=== PATIENT | female | born 1970 | race African-American/Black ===

== ENCOUNTER 2017-03-15 22:23 | Inpatient (IN) | payer OTHER ==
[~2017-03-15] VITALS: Ht 157.5 cm; Wt 89.8 kg
[~2017-03-15 22:23] MED LIST: HYDR25CA PO; PERM60CR12 TP; VALA10005 PO; [UNRECOGNIZED DRUG - CODE] MC; [UNRECOGNIZED DRUG - CODE] TP
[2017-03-15] MEDS ORDERED: IV NORMAL SALINE 1000ML BAG 1,000 ML IV ONE (23:15)
[2017-03-15] MEDS ORDERED: LORAZEPAM 2 MG/ML VIAL. IV ONE (23:15)
[2017-03-16] VITALS (12 sets, daily range): BP systolic 149–181; BP diastolic 70–91
[2017-03-16 00:45] LABS: BASO % 1 % (0-3); EOS % 1 % (0-3); HEMATOCRIT 25.5 % (36.0-47.0); HEMOGLOBIN 7.6 g/dL (12.0-15.5); LYMPH # 3.2 x10^3/uL (1.0-4.8); LYMPH % 36 % (24-48); MEAN CORPUSCULAR HEMOGLOBIN 20 pg (25-35); MEAN CORPUSCULAR HGB CONC 30 g/dL (31-37); MEAN CORPUSCULAR VOLUME 67 fL (79-100); MONO % 11 % (0-9); NEUT % 52 % (31-73); PLATELET COUNT 302 x10^3/uL (140-400); RED CELL DISTRIBUTION WIDTH 33.9 % (11.5-14.5); WHITE BLOOD COUNT 8.9 x10^3/uL (4.0-11.0)
[2017-03-16 01:03] LABS: CALCIUM 8.8 mg/dL (8.5-10.1); CREATININE 1.2 mg/dL (0.6-1.0); GFR 58.5; POTASSIUM 3.6 mmol/L (3.5-5.1)
[2017-03-16 01:09] LABS: ALBUMIN 3.1 g/dL (3.4-5.0); ALBUMIN/GLOBULIN RATIO 0.9 (1.0-1.7); TOTAL BILIRUBIN 0.2 mg/dL (0.2-1.0); TOTAL PROTEIN 6.6 g/dL (6.4-8.2)
[2017-03-16 01:36] LABS: BILIRUBIN,URINE NEGATIVE (NEG); GLUCOSE,URINE NEGATIVE (NEG); NITRITE,URINE POSITIVE (NEG); PROTEIN,URINE NEGATIVE (NEG-TRACE); UROBILINOGEN,URINE 0.2 mg/dL (0.2 mg/dL)
[2017-03-16 01:42] LABS: BARBITURATES NEG (NEG); BENZODIAZEPINES NEG (NEG); CANNABINOIDS NEG (NEG); COCAINE NEG (NEG); METHADONE NEG (NEG); OPIATES NEG (NEG); PHENCYCLIDINE NEG (NEG)
[2017-03-16 01:43] LABS: ETHANOL, URINE NEG (NEG)
[2017-03-16 01:47] LABS: BACTERIA,URINE MANY /HPF (0-FEW); RBC,URINE OCC /HPF (0-2); SQUAMOUS EPITHELIAL CELL,UR FEW /LPF
--- NOTE | 2017-03-16 02:28 | ACF ---
Admission Forms Criteria SEIZURE Clinical Indications for Admission to Inpatient Care (Place 'X' for any and all applicable criteria): Admission is indicated for seizure and ANY ONE of the following(1)(2)(3)(4)(5): [X]I. Inpatient admission required rather than observation care (Also use Seizure: Observation Care Criteria as appropriate) because of ANY ONE of the following: [ ]a) Altered mental status that is severe or persistent [ ]b) New focal neurologic deficit that is severe or persistent [ ]c) Metabolic disorder (eg, hypoglycemia, hyponatremia) that is severe or persistent [ ]d) Recurrent seizure [ ]e) Outpatient antiseizure regimen cannot be established (eg , patient cannot tolerate medication, initiation requires inpatient care) [X]f) Need for ongoing intravenous infusion of antiseizure medication [ ]g) Cardiac arrhythmias of immediate concern [ ]h) Cerebral bleeding, hydrocephalus, or vasospasm monitoring (14) [ ]i) Increased intracranial pressure or cerebral edema monitoring (15) [ ]j) Other treatment or monitoring requiring inpatient admission [ ]II. Status epilepticus [A] or repetitive seizures not controlled with emergent treatment (6)(8) [ ]III. Brain disorder (eg, tumor, edema, and hydrocephalus) that requiring monitoring or intervention available only at inpatient level of care. [ ]IV. Brain insult (eg, severe trauma, stroke, drug toxicity, or withdrawal) that requires monitoring or intervention available only at inpatient level of care (10)(11) Extended stay beyond goal length of stay may be needed for (22) [ ]a) Complications of status epilepticus [ ]b) Refractory status epilepticus [ ]c) Etiology-specific therapy for conditions such as FLOOR POLISHER infection, head injury,eclampsia, severe metabolic abnormalities, and brain tumor [ ]d) Residual neurologic damage, [ ]e) Initiation of significant change to anticonvulsant treatment [ ]f) Older patients (65 years or older) [ ]g) Patient requiring intubation (eg, to protect airway) The original [employer] content created by [facility] and [employer] has been revised. The portions of the content which have been revised are identified through the use of italic text or in bold, and [facility] [employer] has neither reviewed nor approved the modified material. All other unmodified content is copyright [facility] [employer]. Please see references footnoted in the original [facility] edition 2016 Admission Criteria Met?: Yes KALIE MARTINEZ Mar 16, 2017 02:28
--- NOTE | 2017-03-16 03:09 | PHYS DOC ---
Past Medical History Past Medical History: Asthma, Diabetes-Type II, Hypertension Past Surgical History: No Surgical History Alcohol Use: None Drug Use: None Adult General Chief Complaint Chief Complaint: SEIZURE HPI HPI Patient is a 46 year old female who presents s/p seizure. Patient accompanied by family who contribute to history. She was at home when she started blinking, not responding, and holding her arm out to the side. This lasted 5-10 minutes and was followed by a period of confusion. On arrival to ED patient returning to baseline mental status. She does report mild BARRETT and feeling sore all over. Patient does have h/o seizures (has been many years since last seizure) for which she took phenobarbital, however she has not taken this medication in quite some time. In addition, patient reports recently she has been experiencing dizziness, SOB with exertion, and fatigue. She says she was seen by her PCP and was found to be anemic, but not to the point where she needed a transfusion. She is unsure what is causing the anemia. Patient denies any blood in her stool. Review of Systems Review of Systems Constitutional: Dizziness, fatigue. Denies fever or chills Eyes: Denies change in visual acuity or eye pain HENT: Denies nasal congestion or sore throat Respiratory: Exertional shortness of breath Cardiovascular: Denies chest pain GI: Denies abdominal pain, nausea, vomiting, bloody stools or diarrhea : Denies dysuria or hematuria Musculoskeletal: Body aches Integument: Denies rash or skin lesions Neurologic: Seizure, mild headache. Denies focal weakness or sensory changes Current Medications Current Medications Current Medications Medications (Trade) Dose Ordered Sig/Pranay Start Time Stop Time Status Last Admin Dose Admin Lorazepam (Ativan) 1 mg 1X ONCE 03/15/17 23:15 03/15/17 23:16 DC 03/16/17 00:31 1 MG Sodium Chloride (Iv Sodium Chloride 0.9% 1000ml Bag) 1,000 ml @ 1,000 mls/hr 1X ONCE 03/15/17 23:15 03/16/17 00:14 DC 03/16/17 00:31 1,000 MLS/HR Allergies Allergies Allergies Coded Allergies Type Severity Reaction Last Updated Verified No Known Drug Allergies 04/30/16 No Physical Exam Physical Exam Constitutional: Well developed, well nourished, no acute distress, non-toxic appearance HENT: Normocephalic, atraumatic, bilateral external ears normal Eyes: PERRL, EOMI, conjunctiva normal, no discharge Neck: Normal range of motion, no stridor Cardiovascular: Heart rate normal, regular rhythm, no murmur Lungs & Thorax: Bilateral breath sounds clear to auscultation Abdomen: Bowel sounds normal, soft, non-distended, no TTP Skin: Warm, dry, no erythema, no rash Extremities: No obvious deformity, no edema Neurologic: Alert and oriented X 3, slow responses to questions, GCS 15, CN II- XII grossly intact, strength intact and symmetrical throughout, sensation to light touch intact throughout, no dystaxia noted Current Patient Data Vital Signs Vital Signs Date Time Temp Pulse Resp B/P Pulse Ox O2 Delivery O2 Flow Rate FiO2 03/15/17 22:40 98.2 76 16 187/85 100 Room Air 98.2 Lab Values Laboratory Tests Test 03/16/17 00:15 03/16/17 00:35 03/16/17 01:23 White Blood Count 8.9x10^3/uL (4.0-11.0) Red Blood Count 3.80x10^6/uL (3.50-5.40) Hemoglobin 7.6g/dL (12.0-15.5) L Hematocrit 25.5% (36.0-47.0) L Mean Corpuscular Volume 67fL (79-100) L Mean Corpuscular Hemoglobin 20pg (25-35) L Mean Corpuscular Hemoglobin Concent 30g/dL (31-37) L Red Cell Distribution Width 33.9% (11.5-14.5) H Platelet Count 302x10^3/uL (140-400) Neutrophils (%) (Auto) 52% (31-73) Lymphocytes (%) (Auto) 36% (24-48) Monocytes (%) (Auto) 11% (0-9) H Eosinophils (%) (Auto) 1% (0-3) Basophils (%) (Auto) 1% (0-3) Neutrophils # (Auto) 4.7x10^3uL (1.8-7.7) Lymphocytes # (Auto) 3.2x10^3/uL (1.0-4.8) Monocytes # (Auto) 1.0x10^3/uL (0.0-1.1) Eosinophils # (Auto) 0.1x10^3/uL (0.0-0.7) Basophils # (Auto) 0.0x10^3/uL (0.0-0.2) Platelet Estimate Pending Sodium Level 139mmol/L (136-145) Potassium Level 3.6mmol/L (3.5-5.1) Chloride Level 107mmol/L (98-107) Carbon Dioxide Level 28mmol/L (21-32) Anion Gap 4 (6-14) L Blood Urea Nitrogen 12mg/dL (7-20) Creatinine 1.2mg/dL (0.6-1.0) H Estimated GFR (Cockcroft-Gault) 58.5 BUN/Creatinine Ratio 10 (6-20) Glucose Level 112mg/dL (70-99) H Calcium Level 8.8mg/dL (8.5-10.1) Magnesium Level 2.0mg/dL (1.8-2.4) Total Bilirubin 0.2mg/dL (0.2-1.0) Aspartate Amino Transferase (AST) 14U/L (15-37) L Alanine Aminotransferase (ALT) 18U/L (14-59) Alkaline Phosphatase 77U/L (46-116) Total Protein 6.6g/dL (6.4-8.2) Albumin 3.1g/dL (3.4-5.0) L Albumin/Globulin Ratio 0.9 (1.0-1.7) L Urine Collection Type Unknown Urine Color Yellow Urine Clarity Clear Urine pH 6.0 Urine Specific [place] 1.025 Urine Protein Negativemg/dL (NEG-TRACE) Urine Glucose (UA) Negativemg/dL (NEG) Urine Ketones (Stick) Negativemg/dL (NEG) Urine Blood Negative (NEG) Urine Nitrite Positive (NEG) Urine Bilirubin Negative (NEG) Urine Urobilinogen Dipstick 0.2mg/dL (0.2 mg/dL) Urine Leukocyte Esterase Negative (NEG) Urine RBC Occ/HPF (0-2) Urine WBC 1-4/HPF (0-4) Urine Squamous Epithelial Cells Few/LPF Urine Bacteria Many/HPF (0-FEW) Urine Opiates Screen Neg (NEG) Urine Methadone Screen Neg (NEG) Urine Barbiturates Neg (NEG) Urine Phencyclidine Screen Neg (NEG) Urine Amphetamine/Methamphetamine Pos (NEG) Urine Benzodiazepines Screen Neg (NEG) Urine Cocaine Screen Neg (NEG) Urine Cannabinoids Screen Neg (NEG) Urine Ethyl Alcohol Neg (NEG) Laboratory Tests 03/16/17 00:15 Laboratory Tests 03/16/17 00:35 EKG EKG EKG (my read): sinus rhythm, rate 76, normal axis, intervals wnl, no acute ST/T changes Radiology/Procedures Radiology/Procedures [] Course & Med Decision Making Course & Med Decision Making Pertinent Labs and Imaging studies reviewed. (See chart for details) Patient is 46 year old female who presents s/p seizure. Does have remote h/o same. Will check labs, UA, EKG to evaluate for possible inciting cause. IV fluids, small dose of ativan ordered. EKG ok per my read. Labs notable for anemia; she does have symptoms caused by this. After long discussion with patient and family, we decided to transfuse patient. Risks and benefits discussed, consent signed and placed on chart. Will admit under the care of Dr. Middleton for further evaluation and treatment. Dragon Disclaimer Dragon Disclaimer This electronic medical record was generated, in whole or in part, using a voice recognition dictation system. Departure Departure Impression: Primary Impression: Seizure Additional Impression: Symptomatic anemia Disposition: ADMITTED INPATIENT Admitting Physician: Zuly Middleton Condition: STABLE Referrals: ROSALEE CHACKO MD (PCP) Problem Qualifiers JAVI CRUMP MD Mar 16, 2017 03:09
[2017-03-16] MEDS ORDERED: ONDANSETRON PF 4 MG/2 ML VIAL. IV PRN ×2 (03:15→09:35)
[2017-03-16] MEDS ORDERED: ACETAMINOPHEN 325 MG TABLET. PO PRN (03:15)
[2017-03-16] MEDS ORDERED: MORPHINE SULFATE 2 MG/ML DISP.SYRIN. IV PRN (03:15)
[2017-03-16 03:31] LABS: HYPOCHROMIA MOD; MICROCYTOSIS MARKED; PLT ESTIMATE ADEQUATE (ADEQUATE); POIKILOCYTOSIS SLIGHT; POLYCHROMASIA SLIGHT
[2017-03-16 03:32] LABS: OVALOCYTES OCC; TARGET CELLS OCC
[2017-03-16] MEDS ORDERED: hydrALAZINE 20 MG/ML VIAL. IVP PRN (04:15)
--- NOTE | 2017-03-16 08:53 | EKG ---
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
--- NOTE | 2017-03-16 11:26 | PDOC2 ---
NEUROLOGY CONSULT Date of Admission Date of Admission DATE: 03/16/17 TIME: 11:21 Reason for Consult Reason for Consult: Seizure Referring Physician Referring Physician: Dr. Middleton PCP: Dr. Milligan Source Source: Chart review, Patient History of Present Illness History of Present Illness The patient is a 46-year-old right-handed female who had a seizure last night. She was recently diagnosed with anemia and indeed her hemoglobin is low. Family described a tonic seizure with minimal convulsive activity in a short post a full state. The patient last had a seizure more than 10 years ago. She started having seizures at age 13 and was on phenobarbital. She does not know if she took other anticonvulsants. She feels better now. Past Medical History Cardiovascular: HTN Pulmonary: Asthma CENTRAL NERVOUS SYSTEM: Seizure Infectious disease: Herpes simplex2 Endocrine: Diabetes ( currently controlled with diet) Dermatology: Other (Scabies) Past Surgical History Past Surgical History: No pertinent history Family History Family History: No pertinent hx ( negative procedures) Social History Social History No alcohol or tobacco, unemployed Current Medications Current Medications Current Medications Sodium Chloride (Iv Sodium Chloride 0.9% 1000ml Bag) 1,000 ml @ 1,000 mls/hr 1X ONCE IV Last administered on 03/16/17 00:31; Start 03/15/17 at 23:15; Stop 03/16/17 at 00:14; Status DC Lorazepam (Ativan) 1 mg 1X ONCE IV Last administered on 03/16/17 00:31; Start 03/15/17 at 23:15; Stop 03/15/17 at 23:16; Status DC Ondansetron HCl (Zofran) 4 mg PRN Q8HRS PRN IV NAUSEA/VOMITING; Start 03/16/17 at 03:15; Stop 03/16/17 at 09:38; Status DC Morphine Sulfate 2 mg PRN Q2HR PRN IV SEVERE PAIN; Start 03/16/17 at 03:15; Stop 03/17/17 at 03:14 Acetaminophen 650 mg 650 mg PRN Q4HRS PRN PO FEVER; Start 03/16/17 at 03:15; Stop 03/17/17 at 03:14 Ceftriaxone Sodium (Rocephin 1gm Ivpb For Omni) 50 ml @ 100 mls/hr 1X ONCE IV Last administered on 03/16/17 03:37; Start 03/16/17 at 04:00; Stop 03/16/17 at 04:29; Status DC Hydralazine HCl (Apresoline) 10 mg PRN Q1HR PRN IVP HYPERTENSION, SEE COMMENTS ; Start 03/16/17 at 04:15 Ondansetron HCl 4 mg 4 mg PRN Q6HRS PRN IV NAUSEA/VOMITING; Start 03/16/17 at 09:35 Ceftriaxone Sodium/Sodium Chloride (Rocephin/Iv Sodium Chloride 0.9% 50ml) 50 ml @ 100 mls/hr Q24H IV ; Start 03/17/17 at 06:00 Hydroxyzine Pamoate (Vistaril) 25 mg TID PO ; Start 03/16/17 at 14:00 Active Scripts Active Permethrin 60 Gm Cream..g. 60 Gm TP 1X Apply head to toe leave on for 8-12 hours and wash off. May repeat in 7 days. Vistaril (Hydroxyzine Pamoate) 25 Mg Capsule 1 Cap PO TID Valtrex (Valacyclovir Hcl) 1,000 Mg Tablet 1 Tab PO BID Bedding Grottoes (Permethrin) 142 Gm [place] 142 Gm MC 1X Permethrin 59 Ml Liquid 60 Ml TP 1X Allergies Allergies: Coded Allergies: No Known Drug Allergies (Unverified , 04/30/16) ROS Review of System Negative for fevers, chills, weight loss, shortness of breath, chest pain, indigestion, hematochezia, melena, dysuria. Full 14-point review systems is negative. Physical Exam Physical Examination PHYSICAL EXAMINATION: Vital signs: see above. General appearance is normal and in no acute distress. HEENT: Normocephalic and nontraumatic. Eyes, nose, ears, and throat are unremarkable. Neck is supple. No lymphadenopathy. No bruits are heard over the carotid artery. No crepitus. NEUROLOGICAL EXAMINATION: Mental Status Examination: Alert. Oriented to time, place, and person. Answers questions and follows commends. Pupils are equal round and reactive to light and accommodation. Funduscopic exam: No papilledema. Extraocular movements are intact. Visual field exam shows no defect on the direct confrontation. No motor or sensory deficits on the facial exam. Uvula in the midline and the soft palate elevated symmetrically. No deviation of the tongue to any direction. Gross hearing is normal. Shoulder shrug normal. Muscle tone is normal. Muscle strength is 5. Deep tendon reflexes are 2+ all around. Plantar reflex is with flexion response bilaterally. [id number]-[id number]-[id number] test performance is accurate. Tandem walk test is accurate. Alternative movements are accurate. Romberg test is negative. Gait is normal. Sensory exam shows no deficits. No cerebellar signs are elicited. Vitals VITALS Vital Signs Date Time Temp Pulse Resp B/P Pulse Ox O2 Delivery O2 Flow Rate FiO2 03/16/17 08:00 Room Air 03/16/17 07:00 98.9 60 18 150/70 100 98.9 Labs Labs Laboratory Tests Test 03/16/17 00:15 03/16/17 00:35 03/16/17 01:23 White Blood Count 8.9x10^3/uL (4.0-11.0) Red Blood Count 3.80x10^6/uL (3.50-5.40) Hemoglobin 7.6g/dL (12.0-15.5) Hematocrit 25.5% (36.0-47.0) Mean Corpuscular Volume 67fL (79-100) Mean Corpuscular Hemoglobin 20pg (25-35) Mean Corpuscular Hemoglobin Concent 30g/dL (31-37) Red Cell Distribution Width 33.9% (11.5-14.5) Platelet Count 302x10^3/uL (140-400) Neutrophils (%) (Auto) 52% (31-73) Lymphocytes (%) (Auto) 36% (24-48) Monocytes (%) (Auto) 11% (0-9) Eosinophils (%) (Auto) 1% (0-3) Basophils (%) (Auto) 1% (0-3) Neutrophils # (Auto) 4.7x10^3uL (1.8-7.7) Lymphocytes # (Auto) 3.2x10^3/uL (1.0-4.8) Monocytes # (Auto) 1.0x10^3/uL (0.0-1.1) Eosinophils # (Auto) 0.1x10^3/uL (0.0-0.7) Basophils # (Auto) 0.0x10^3/uL (0.0-0.2) Platelet Estimate Adequate (ADEQUATE) Polychromasia Slight Hypochromasia Mod Poikilocytosis Slight Microcytosis Marked Macrocytosis Slight Target Cells Occ Ovalocytes Occ Sodium Level 139mmol/L (136-145) Potassium Level 3.6mmol/L (3.5-5.1) Chloride Level 107mmol/L (98-107) Carbon Dioxide Level 28mmol/L (21-32) Anion Gap 4 (6-14) Blood Urea Nitrogen 12mg/dL (7-20) Creatinine 1.2mg/dL (0.6-1.0) Estimated GFR (Cockcroft-Gault) 58.5 BUN/Creatinine Ratio 10 (6-20) Glucose Level 112mg/dL (70-99) Calcium Level 8.8mg/dL (8.5-10.1) Magnesium Level 2.0mg/dL (1.8-2.4) Total Bilirubin 0.2mg/dL (0.2-1.0) Aspartate Amino Transf (AST/SGOT) 14U/L (15-37) Alanine Aminotransferase (ALT/SGPT) 18U/L (14-59) Alkaline Phosphatase 77U/L (46-116) Total Protein 6.6g/dL (6.4-8.2) Albumin 3.1g/dL (3.4-5.0) Albumin/Globulin Ratio 0.9 (1.0-1.7) Urine Collection Type Unknown Urine Color Yellow Urine Clarity Clear Urine pH 6.0 Urine Specific [place] 1.025 Urine Protein Negativemg/dL (NEG-TRACE) Urine Glucose (UA) Negativemg/dL (NEG) Urine Ketones (Stick) Negativemg/dL (NEG) Urine Blood Negative (NEG) Urine Nitrite Positive (NEG) Urine Bilirubin Negative (NEG) Urine Urobilinogen Dipstick 0.2mg/dL (0.2 mg/dL) Urine Leukocyte Esterase Negative (NEG) Urine RBC Occ/HPF (0-2) Urine WBC 1-4/HPF (0-4) Urine Squamous Epithelial Cells Few/LPF Urine Bacteria Many/HPF (0-FEW) Urine Opiates Screen Neg (NEG) Urine Methadone Screen Neg (NEG) Urine Barbiturates Neg (NEG) Urine Phencyclidine Screen Neg (NEG) Urine Amphetamine/Methamphetamine Pos (NEG) Urine Benzodiazepines Screen Neg (NEG) Urine Cocaine Screen Neg (NEG) Urine Cannabinoids Screen Neg (NEG) Urine Ethyl Alcohol Neg (NEG) Laboratory Tests Test 03/16/17 00:15 03/16/17 00:35 03/16/17 01:23 White Blood Count 8.9x10^3/uL (4.0-11.0) Red Blood Count 3.80x10^6/uL (3.50-5.40) Hemoglobin 7.6g/dL (12.0-15.5) Hematocrit 25.5% (36.0-47.0) Mean Corpuscular Volume 67fL (79-100) Mean Corpuscular Hemoglobin 20pg (25-35) Mean Corpuscular Hemoglobin Concent 30g/dL (31-37) Red Cell Distribution Width 33.9% (11.5-14.5) Platelet Count 302x10^3/uL (140-400) Neutrophils (%) (Auto) 52% (31-73) Lymphocytes (%) (Auto) 36% (24-48) Monocytes (%) (Auto) 11% (0-9) Eosinophils (%) (Auto) 1% (0-3) Basophils (%) (Auto) 1% (0-3) Neutrophils # (Auto) 4.7x10^3uL (1.8-7.7) Lymphocytes # (Auto) 3.2x10^3/uL (1.0-4.8) Monocytes # (Auto) 1.0x10^3/uL (0.0-1.1) Eosinophils # (Auto) 0.1x10^3/uL (0.0-0.7) Basophils # (Auto) 0.0x10^3/uL (0.0-0.2) Platelet Estimate Adequate (ADEQUATE) Polychromasia Slight Hypochromasia Mod Poikilocytosis Slight Microcytosis Marked Macrocytosis Slight Target Cells Occ Ovalocytes Occ Sodium Level 139mmol/L (136-145) Potassium Level 3.6mmol/L (3.5-5.1) Chloride Level 107mmol/L (98-107) Carbon Dioxide Level 28mmol/L (21-32) Anion Gap 4 (6-14) Blood Urea Nitrogen 12mg/dL (7-20) Creatinine 1.2mg/dL (0.6-1.0) Estimated GFR (Cockcroft-Gault) 58.5 BUN/Creatinine Ratio 10 (6-20) Glucose Level 112mg/dL (70-99) Calcium Level 8.8mg/dL (8.5-10.1) Magnesium Level 2.0mg/dL (1.8-2.4) Total Bilirubin 0.2mg/dL (0.2-1.0) Aspartate Amino Transf (AST/SGOT) 14U/L (15-37) Alanine Aminotransferase (ALT/SGPT) 18U/L (14-59) Alkaline Phosphatase 77U/L (46-116) Total Protein 6.6g/dL (6.4-8.2) Albumin 3.1g/dL (3.4-5.0) Albumin/Globulin Ratio 0.9 (1.0-1.7) Urine Collection Type Unknown Urine Color Yellow Urine Clarity Clear Urine pH 6.0 Urine Specific [place] 1.025 Urine Protein Negativemg/dL (NEG-TRACE) Urine Glucose (UA) Negativemg/dL (NEG) Urine Ketones (Stick) Negativemg/dL (NEG) Urine Blood Negative (NEG) Urine Nitrite Positive (NEG) Urine Bilirubin Negative (NEG) Urine Urobilinogen Dipstick 0.2mg/dL (0.2 mg/dL) Urine Leukocyte Esterase Negative (NEG) Urine RBC Occ/HPF (0-2) Urine WBC 1-4/HPF (0-4) Urine Squamous Epithelial Cells Few/LPF Urine Bacteria Many/HPF (0-FEW) Urine Opiates Screen Neg (NEG) Urine Methadone Screen Neg (NEG) Urine Barbiturates Neg (NEG) Urine Phencyclidine Screen Neg (NEG) Urine Amphetamine/Methamphetamine Pos (NEG) Urine Benzodiazepines Screen Neg (NEG) Urine Cocaine Screen Neg (NEG) Urine Cannabinoids Screen Neg (NEG) Urine Ethyl Alcohol Neg (NEG) Images Images No imaging studies done Assessment/Plan Assessment/Plan Impression: Recurrent seizure in a known epileptic patient, possibly precipitated by anemia. Recommendations: Brain MRI EEG hold off on starting anticonvulsants given the fact that this is a secondary seizure. Treatment of anemia, workup of anemia. I told the patient that she cannot drive until she has gone 6 months without a seizure. Thank you for letting me help with the patient's care. TEJA MORRIS MD Mar 16, 2017 11:26
--- NOTE | 2017-03-16 13:24 | PDOC1 ---
History and Physical Date of Admission Date of Admission DATE: 03/16/17 TIME: 13:16 Identification/Chief Complaint Chief Complaint SZ witnessed Problems: Source Source: Chart review, Patient History of Present Illness History of Present Illness 46 y.o AA female had what sounds like a partial complex sz yesterday witnessed by family members manifesting as staring into space, hand/arm onthe side, outstretched. She claims she could not talk, could not move, lasted few mins, and when she came to, couldnt move or talk immediately and felt tired. Hx of SZ in childhood, was on phenobarbital, doing well until the day of admission, Currently undergoing EEG, neuro on board But interestingly on routine labs, hgb 7,.6 with MCV 60s, denies heavy periods but was always told had anemia, ER did transfuse 1 pRBC - undergoing now Pt denies hx sickle cell in family , maybe was on iron supplements in the past She deneis and black tarry stools or gross blood. tested positive for amphetamines in UDS. She does admit to feeling weak and lack of energy (re anemia) Past Medical History Cardiovascular: HTN Pulmonary: Asthma CENTRAL NERVOUS SYSTEM: Seizure Infectious disease: Herpes simplex2 Endocrine: Diabetes ( currently controlled with diet) Dermatology: Other (Scabies) Past Surgical History Past Surgical History: No pertinent history Family History Family History: No Significant Social History Smoke: No ALCOHOL: occassional Drugs: Cocaine Current Problem List Problem List Problems Medical Problems: (1) Seizure Status: Acute (2) Symptomatic anemia Status: Acute Problems: Current Medications Current Medications Current Medications Sodium Chloride (Iv Sodium Chloride 0.9% 1000ml Bag) 1,000 ml @ 1,000 mls/hr 1X ONCE IV Last administered on 03/16/17 00:31; Start 03/15/17 at 23:15; Stop 03/16/17 at 00:14; Status DC Lorazepam (Ativan) 1 mg 1X ONCE IV Last administered on 03/16/17 00:31; Start 03/15/17 at 23:15; Stop 03/15/17 at 23:16; Status DC Ondansetron HCl (Zofran) 4 mg PRN Q8HRS PRN IV NAUSEA/VOMITING; Start 03/16/17 at 03:15; Stop 03/16/17 at 09:38; Status DC Morphine Sulfate 2 mg PRN Q2HR PRN IV SEVERE PAIN; Start 03/16/17 at 03:15; Stop 03/17/17 at 03:14 Acetaminophen 650 mg 650 mg PRN Q4HRS PRN PO FEVER; Start 03/16/17 at 03:15; Stop 03/17/17 at 03:14 Ceftriaxone Sodium (Rocephin 1gm Ivpb For Omni) 50 ml @ 100 mls/hr 1X ONCE IV Last administered on 03/16/17t 03:37; Start 03/16/17 at 04:00; Stop 03/16/17 at 04:29; Status DC Hydralazine HCl (Apresoline) 10 mg PRN Q1HR PRN IVP HYPERTENSION, SEE COMMENTS ; Start 03/16/17 at 04:15 Ondansetron HCl 4 mg 4 mg PRN Q6HRS PRN IV NAUSEA/VOMITING; Start 03/16/17 at 09:35 Ceftriaxone Sodium/Sodium Chloride (Rocephin/Iv Sodium Chloride 0.9% 50ml) 50 ml @ 100 mls/hr Q24H IV ; Start 03/17/17 at 06:00 Hydroxyzine Pamoate (Vistaril) 25 mg TID PO ; Start 03/16/17 at 14:00 Active Scripts Active Permethrin 60 Gm Cream..g. 60 Gm TP 1X Apply head to toe leave on for 8-12 hours and wash off. May repeat in 7 days. Vistaril (Hydroxyzine Pamoate) 25 Mg Capsule 1 Cap PO TID Valtrex (Valacyclovir Hcl) 1,000 Mg Tablet 1 Tab PO BID Bedding Planada (Permethrin) 142 Gm Planada 142 Gm MC 1X Permethrin 59 Ml Liquid 60 Ml TP 1X Allergies Allergies: Coded Allergies: No Known Drug Allergies (Unverified , 04/30/16) ROS General: YES: Fatigue, Malaise, Other (gen weakness) PSYCHOLOGICAL ROS: No: Anxiety, Behavioral Disorder, Concentration difficultie , Decreased libido, Depression, Disorientation, Hallucinations, Hostility, Irritablity, Memory difficulties, Mood Swings, Obsessive thoughts, Other, Physical abuse, Sexual abuse, Sleep disturbances, Suicidal ideation Eyes: No Blurry vision, No Decreased vision, No Double vision, No Dry eyes, No Excessive tearing, No Eye Pain, No Itchy Eyes, No Loss of vision, No Other, No Photophobia, No Scotomata, No Uses contacts, No Uses glasses HEENT: No: Epistaxis, Heacaches, Hearing change, Nasal congestion, Nasal discharge, Oral lesions, Other, Sinus pain, Sneezing, Snoring, Sore Throat, Tinnitus, Vertigo, Visual Changes, Vocal changes ALLERGY AND IMMUNOLOGY: No: Hives, Insect Bite Sensitivity, Itchy/Watery Eyes, Nasal Congestion, Other, Post Nasal Drip, Seasonal Allergies Hematological and Lymphatic: No: Bleeding Problems, Blood Clots, Blood Transfusions, Brusing, Night Sweats, Other, Pallor, Swollen Lymph Nodes ENDOCRINE: No: Breast Changes, Galactorrhea, Hair Pattern Changes, Hot Flashes , Malaise/lethargy, Mood Swings, Other, Palpitations, Polydipsia/polyuria, Skin Changes, Temperature Intolerance, Unexpected Weight Changes Breast: No New/Changing Breast Lumps, No Nipple changes, No Nipple discharge, No Other Respiratory: No: Cough, Hemoptysis, Orthopnea, Other, Pleuritic Pain, SOB with excertion, Shortness of breath, Sputum Changes, Stridor, Tachypnea, Wheezing Cardiovascular: No Chest Pain, No Edema, No Lt Headedness, No Orthopnea, No Other, No Palpitations, No Paroxysmal Noc. Dyspnea Gastrointestinal: No Abdominal Pain, No Constipation, No Diarrhea, No Hematochezia, No Melena, No Nausea, No Other, No Vomiting Genitourinary: No , No , No , No , No , No , No , No Discharge, No Dysuria, No Flank Pain, No Frequency, No Hematuria, No Incontinence, No Other, No Pain, No Retention, No Urgency Musculoskeletal: No Gait Disturbance, No Joint Pain, No Joint Stiffness, No Joint Swelling, No Muscle Pain, No Muscular Weakness, No Other, No Pain In:, No Swelling In: Neurological: Yes Other (sz) Skin: No Acne, No Dry Skin, No Eczema, No Hair Changes, No Lumps, No Mole Changes, No Mottling, No Nail Changes, No Other, No Pruritus, No Rash, No Skin Lesion Changes Physical Exam General: Alert, Oriented X3, Cooperative, No acute distress HEENT: Atraumatic, PERRLA, EOMI, Mucous membr. moist/pink Lungs: Clear to auscultation, Normal air movement Heart: S1S2, RRR, no gallops, no murmurs Cardiovascular: S1, S2 Breasts: Normal Abdomen: Normal bowel sounds, Soft, No tenderness, No hepatosplenomegaly, No masses Rectal Exam: not examined PELVIC: Nml ext genitalia Extremities: No clubbing, No cyanosis, No edema, Normal pulses, No tenderness/ swelling Skin: No rashes, No breakdown, No significant lesion Neuro: Normal gait, Normal speech, Strength at 5/5 X4 ext, Normal tone, Sensation intact, Cranial nerves 3-12 NL, Reflexes 2+ Psych/Mental Status: Mental status NL, Mood NL Vitals Vitals Vital Signs Date Time Temp Pulse Resp B/P Pulse Ox O2 Delivery O2 Flow Rate FiO2 03/16/17 08:00 Room Air 03/16/17 07:00 98.9 60 18 150/70 100 98.9 Labs Labs Laboratory Tests Test 03/16/17 00:15 03/16/17 00:35 03/16/17 01:23 White Blood Count 8.9x10^3/uL (4.0-11.0) Red Blood Count 3.80x10^6/uL (3.50-5.40) Hemoglobin 7.6g/dL (12.0-15.5) Hematocrit 25.5% (36.0-47.0) Mean Corpuscular Volume 67fL (79-100) Mean Corpuscular Hemoglobin 20pg (25-35) Mean Corpuscular Hemoglobin Concent 30g/dL (31-37) Red Cell Distribution Width 33.9% (11.5-14.5) Platelet Count 302x10^3/uL (140-400) Neutrophils (%) (Auto) 52% (31-73) Lymphocytes (%) (Auto) 36% (24-48) Monocytes (%) (Auto) 11% (0-9) Eosinophils (%) (Auto) 1% (0-3) Basophils (%) (Auto) 1% (0-3) Neutrophils # (Auto) 4.7x10^3uL (1.8-7.7) Lymphocytes # (Auto) 3.2x10^3/uL (1.0-4.8) Monocytes # (Auto) 1.0x10^3/uL (0.0-1.1) Eosinophils # (Auto) 0.1x10^3/uL (0.0-0.7) Basophils # (Auto) 0.0x10^3/uL (0.0-0.2) Platelet Estimate Adequate (ADEQUATE) Polychromasia Slight Hypochromasia Mod Poikilocytosis Slight Microcytosis Marked Macrocytosis Slight Target Cells Occ Ovalocytes Occ Sodium Level 139mmol/L (136-145) Potassium Level 3.6mmol/L (3.5-5.1) Chloride Level 107mmol/L (98-107) Carbon Dioxide Level 28mmol/L (21-32) Anion Gap 4 (6-14) Blood Urea Nitrogen 12mg/dL (7-20) Creatinine 1.2mg/dL (0.6-1.0) Estimated GFR (Cockcroft-Gault) 58.5 BUN/Creatinine Ratio 10 (6-20) Glucose Level 112mg/dL (70-99) Calcium Level 8.8mg/dL (8.5-10.1) Magnesium Level 2.0mg/dL (1.8-2.4) Total Bilirubin 0.2mg/dL (0.2-1.0) Aspartate Amino Transf (AST/SGOT) 14U/L (15-37) Alanine Aminotransferase (ALT/SGPT) 18U/L (14-59) Alkaline Phosphatase 77U/L (46-116) Total Protein 6.6g/dL (6.4-8.2) Albumin 3.1g/dL (3.4-5.0) Albumin/Globulin Ratio 0.9 (1.0-1.7) Urine Collection Type Unknown Urine Color Yellow Urine Clarity Clear Urine pH 6.0 Urine Specific [place] 1.025 Urine Protein Negativemg/dL (NEG-TRACE) Urine Glucose (UA) Negativemg/dL (NEG) Urine Ketones (Stick) Negativemg/dL (NEG) Urine Blood Negative (NEG) Urine Nitrite Positive (NEG) Urine Bilirubin Negative (NEG) Urine Urobilinogen Dipstick 0.2mg/dL (0.2 mg/dL) Urine Leukocyte Esterase Negative (NEG) Urine RBC Occ/HPF (0-2) Urine WBC 1-4/HPF (0-4) Urine Squamous Epithelial Cells Few/LPF Urine Bacteria Many/HPF (0-FEW) Urine Opiates Screen Neg (NEG) Urine Methadone Screen Neg (NEG) Urine Barbiturates Neg (NEG) Urine Phencyclidine Screen Neg (NEG) Urine Amphetamine/Methamphetamine Pos (NEG) Urine Benzodiazepines Screen Neg (NEG) Urine Cocaine Screen Neg (NEG) Urine Cannabinoids Screen Neg (NEG) Urine Ethyl Alcohol Neg (NEG) Laboratory Tests Test 03/16/17 00:15 03/16/17 00:35 03/16/17 01:23 White Blood Count 8.9x10^3/uL (4.0-11.0) Red Blood Count 3.80x10^6/uL (3.50-5.40) Hemoglobin 7.6g/dL (12.0-15.5) Hematocrit 25.5% (36.0-47.0) Mean Corpuscular Volume 67fL (79-100) Mean Corpuscular Hemoglobin 20pg (25-35) Mean Corpuscular Hemoglobin Concent 30g/dL (31-37) Red Cell Distribution Width 33.9% (11.5-14.5) Platelet Count 302x10^3/uL (140-400) Neutrophils (%) (Auto) 52% (31-73) Lymphocytes (%) (Auto) 36% (24-48) Monocytes (%) (Auto) 11% (0-9) Eosinophils (%) (Auto) 1% (0-3) Basophils (%) (Auto) 1% (0-3) Neutrophils # (Auto) 4.7x10^3uL (1.8-7.7) Lymphocytes # (Auto) 3.2x10^3/uL (1.0-4.8) Monocytes # (Auto) 1.0x10^3/uL (0.0-1.1) Eosinophils # (Auto) 0.1x10^3/uL (0.0-0.7) Basophils # (Auto) 0.0x10^3/uL (0.0-0.2) Platelet Estimate Adequate (ADEQUATE) Polychromasia Slight Hypochromasia Mod Poikilocytosis Slight Microcytosis Marked Macrocytosis Slight Target Cells Occ Ovalocytes Occ Sodium Level 139mmol/L (136-145) Potassium Level 3.6mmol/L (3.5-5.1) Chloride Level 107mmol/L (98-107) Carbon Dioxide Level 28mmol/L (21-32) Anion Gap 4 (6-14) Blood Urea Nitrogen 12mg/dL (7-20) Creatinine 1.2mg/dL (0.6-1.0) Estimated GFR (Cockcroft-Gault) 58.5 BUN/Creatinine Ratio 10 (6-20) Glucose Level 112mg/dL (70-99) Calcium Level 8.8mg/dL (8.5-10.1) Magnesium Level 2.0mg/dL (1.8-2.4) Total Bilirubin 0.2mg/dL (0.2-1.0) Aspartate Amino Transf (AST/SGOT) 14U/L (15-37) Alanine Aminotransferase (ALT/SGPT) 18U/L (14-59) Alkaline Phosphatase 77U/L (46-116) Total Protein 6.6g/dL (6.4-8.2) Albumin 3.1g/dL (3.4-5.0) Albumin/Globulin Ratio 0.9 (1.0-1.7) Urine Collection Type Unknown Urine Color Yellow Urine Clarity Clear Urine pH 6.0 Urine Specific [place] 1.025 Urine Protein Negativemg/dL (NEG-TRACE) Urine Glucose (UA) Negativemg/dL (NEG) Urine Ketones (Stick) Negativemg/dL (NEG) Urine Blood Negative (NEG) Urine Nitrite Positive (NEG) Urine Bilirubin Negative (NEG) Urine Urobilinogen Dipstick 0.2mg/dL (0.2 mg/dL) Urine Leukocyte Esterase Negative (NEG) Urine RBC Occ/HPF (0-2) Urine WBC 1-4/HPF (0-4) Urine Squamous Epithelial Cells Few/LPF Urine Bacteria Many/HPF (0-FEW) Urine Opiates Screen Neg (NEG) Urine Methadone Screen Neg (NEG) Urine Barbiturates Neg (NEG) Urine Phencyclidine Screen Neg (NEG) Urine Amphetamine/Methamphetamine Pos (NEG) Urine Benzodiazepines Screen Neg (NEG) Urine Cocaine Screen Neg (NEG) Urine Cannabinoids Screen Neg (NEG) Urine Ethyl Alcohol Neg (NEG) VTE Prophylaxis Ordered VTE Prophylaxis Devices: Contraindicated VTE Pharmacological Prophylaxi: Contraindicated Assessment/Plan Assessment/Plan 1. Complex, partial SZ by hx 2. Hx childhood SZ 3. Microcytic anemia 4. Positive amphetamines in the system 5. Incidental UTI 6. Elevated BP (no dx of HTN) PLAN: Admit, neuro consult EEG Ativan prn Check haptoglobulin, iron panel, retic ct, hemoglobin electrophoresis (Sickle cell) Dw lab to get pre BT blood if avail Follow pulmo recs Dw pt HH again sweta prn clonidine SLICK ARRIOLA MD Mar 16, 2017 13:24
[2017-03-16] MEDS ORDERED: cloNIDine HCL 0.1 MG TABLET PO PRN (13:30)
[2017-03-16 13:44] LABS: % SAT IRON 10 % (15-34); IRON,SERUM 36 ug/dL (50-170)
[2017-03-16] MEDS ORDERED: GADOBUTROL 10 MMOL/10 ML VIAL IV ONE (15:15)
[2017-03-16] MEDS: cloNIDine HCL 0.1 MG TABLET PO SCH ×2 (15:35→21:12)
[2017-03-16] MEDS: hydrOXYzine PAMOATE 25 MG CAPSULE PO SCH ×2 (15:35→21:12)
--- NOTE | 2017-03-16 15:48 | RAD ---
PROCEDURE MRI brain with and without contrast. HISTORY Seizures. TECHNIQUE Sagittal T1, axial T1, axial T2, axial FLAIR, axial T2 gradient, diffusion imaging with ADC map, post-contrast axial, and post-contrast coronal sequences are provided. Oblique coronal FLAIR through the temporal lobes was performed. Patient received 9 milliliters of intravenous Gadavist without complication. COMPARISON None. FINDINGS There is mild motion degradation. The ventricles and sulci are within normal limits for age. There is no acute intracranial hemorrhage or extra-axial fluid collection. There is no mass effect or midline shift. There is no restricted diffusion to suggest an acute infarct. Cervicomedullary junction is unremarkable. Pituitary and suprasellar region are unremarkable. Intracranial flow voids are preserved. There is ethmoid and maxillary mucosal thickening. Oblique coronal FLAIR imaging through the temporal lobes demonstrates no evidence of mesial temporal sclerosis or temporal lobe mass. IMPRESSION No acute intracranial findings. Electronically signed by: Juan Cuevas MD (Mar 16, 2017 15:47:40)
--- NOTE | 2017-03-16 18:32 | EEG ---
DATE OF SERVICE: 03/16/2017 EEG NUMBER: [id number], performed on 03/16/2017. OBJECTIVE: The patient is a 46-year-old female with recurrent seizure, prior history of epilepsy with last seizure several years before. DESCRIPTION: This is a digital study. Electrodes are placed according to the international 10-20 system. Bipolar and referential montages are available. Activation procedures typically include hyperventilation and intermittent photic stimulation. INTERPRETATION: The waking background consists of 9-10 Hz, 50-100 microvolt activity, symmetrically distributed over parietooccipital regions and reactive to eye opening. Hyperventilation and intermittent photic stimulation are noncontributory. Stage I sleep is achieved with normal electroencephalogram patterns. IMPRESSION: This electroencephalogram with the patient awake and asleep is within normal limits. There is no focal, paroxysmal, or epileptiform activity. Thank you for letting us help with the patient's care. TEJA MORRIS MD DR: AGAPITO/jade JOB#: [id number] / [id number] ELIZABETH Verdugo MD
[2017-03-17 03:00] VITALS: BP 162/87
[2017-03-17] MEDS: cloNIDine HCL 0.1 MG TABLET PO SCH ×2 (05:22→15:09)
[2017-03-17 07:00] VITALS: BP 173/73
[2017-03-17 07:45] LABS: CALCIUM 8.5 mg/dL (8.5-10.1); GFR 72.2; POTASSIUM 3.8 mmol/L (3.5-5.1)
[2017-03-17 07:51] LABS: BASO # 0.1 x10^3/uL (0.0-0.2); BASO % 1 % (0-3); EOS % 1 % (0-3); HEMATOCRIT 33.4 % (36.0-47.0); HEMOGLOBIN 10.3 g/dL (12.0-15.5); LYMPH # 2.5 x10^3/uL (1.0-4.8); LYMPH % 38 % (24-48); MEAN CORPUSCULAR HEMOGLOBIN 22 pg (25-35); MEAN CORPUSCULAR HGB CONC 31 g/dL (31-37); MEAN CORPUSCULAR VOLUME 72 fL (79-100); MONO % 10 % (0-9); NEUT % 50 % (31-73); PLATELET COUNT 293 x10^3/uL (140-400); RED BLOOD COUNT 4.66 x10^6/uL (3.50-5.40); WHITE BLOOD COUNT 6.6 x10^3/uL (4.0-11.0)
[2017-03-17] MEDS: hydrOXYzine PAMOATE 25 MG CAPSULE PO SCH ×2 (09:29→15:08)
--- NOTE | 2017-03-17 10:02 | PDOC3 ---
Discharge Summary Visit Information Date of Admission: Mar 16, 2017 Date of Discharge: Mar 17, 2017 Admitting Diagnosis Comment: Assessment/Plan 1. Complex, partial SZ by hx 2. Hx childhood SZ 3. Microcytic anemia not ZARIA< need to r/o SIckle cell 4. Positive amphetamines in the system 5. Incidental UTI 6. Elevated BP (no dx of HTN) Final Diagnosis Problems Medical Problems: (1) Microcytic anemia Status: Acute (2) Seizure Status: Acute (3) Symptomatic anemia Status: Acute Brief Hospital Course Allergies Allergies Coded Allergies Type Severity Reaction Last Updated Verified No Known Drug Allergies 04/30/16 No Vital Signs Vital Signs Date Time Temp Pulse Resp B/P Pulse Ox O2 Delivery O2 Flow Rate FiO2 03/17/17 08:00 Room Air 03/17/17 07:00 98.4 56 16 173/73 98 98.4 Lab Results Laboratory Tests Test 03/16/17 00:15 03/16/17 00:35 03/16/17 01:23 03/17/17 06:15 White Blood Count 8.9x10^3/uL (4.0-11.0) 6.6x10^3/uL (4.0-11.0) Red Blood Count 3.80x10^6/uL (3.50-5.40) 4.66x10^6/uL (3.50-5.40) Hemoglobin 7.6g/dL (12.0-15.5) 10.3g/dL (12.0-15.5) Hematocrit 25.5% (36.0-47.0) 33.4% (36.0-47.0) Mean Corpuscular Volume 67fL (79-100) 72fL (79-100) Mean Corpuscular Hemoglobin 20pg (25-35) 22pg (25-35) Mean Corpuscular Hemoglobin Concent 30g/dL (31-37) 31g/dL (31-37) Red Cell Distribution Width 33.9% (11.5-14.5) 34.0% (11.5-14.5) Platelet Count 302x10^3/uL (140-400) 293x10^3/uL (140-400) Neutrophils (%) (Auto) 52% (31-73) 50% (31-73) Lymphocytes (%) (Auto) 36% (24-48) 38% (24-48) Monocytes (%) (Auto) 11% (0-9) 10% (0-9) Eosinophils (%) (Auto) 1% (0-3) 1% (0-3) Basophils (%) (Auto) 1% (0-3) 1% (0-3) Neutrophils # (Auto) 4.7x10^3uL (1.8-7.7) 3.3x10^3uL (1.8-7.7) Lymphocytes # (Auto) 3.2x10^3/uL (1.0-4.8) 2.5x10^3/uL (1.0-4.8) Monocytes # (Auto) 1.0x10^3/uL (0.0-1.1) 0.6x10^3/uL (0.0-1.1) Eosinophils # (Auto) 0.1x10^3/uL (0.0-0.7) 0.1x10^3/uL (0.0-0.7) Basophils # (Auto) 0.0x10^3/uL (0.0-0.2) 0.1x10^3/uL (0.0-0.2) Platelet Estimate Adequate (ADEQUATE) Polychromasia Slight Hypochromasia Mod Poikilocytosis Slight Microcytosis Marked Macrocytosis Slight Target Cells Occ Ovalocytes Occ Reticulocyte Count (auto) 1.5% (0.5-2.5) Sodium Level 139mmol/L (136-145) 139mmol/L (136-145) Potassium Level 3.6mmol/L (3.5-5.1) 3.8mmol/L (3.5-5.1) Chloride Level 107mmol/L (98-107) 105mmol/L (98-107) Carbon Dioxide Level 28mmol/L (21-32) 25mmol/L (21-32) Anion Gap 4 (6-14) 9 (6-14) Blood Urea Nitrogen 12mg/dL (7-20) 11mg/dL (7-20) Creatinine 1.2mg/dL (0.6-1.0) 1.0mg/dL (0.6-1.0) Estimated GFR (Cockcroft-Gault) 58.5 72.2 BUN/Creatinine Ratio 10 (6-20) Glucose Level 112mg/dL (70-99) 88mg/dL (70-99) Calcium Level 8.8mg/dL (8.5-10.1) 8.5mg/dL (8.5-10.1) Magnesium Level 2.0mg/dL (1.8-2.4) Iron Level 36ug/dL (50-170) Total Iron Binding Capacity 376ug/dL (250-450) Iron Saturation 10% (15-34) Ferritin 17ng/mL (8-252) Total Bilirubin 0.2mg/dL (0.2-1.0) Aspartate Amino Transf (AST/SGOT) 14U/L (15-37) Alanine Aminotransferase (ALT/SGPT) 18U/L (14-59) Alkaline Phosphatase 77U/L (46-116) Total Protein 6.6g/dL (6.4-8.2) Albumin 3.1g/dL (3.4-5.0) Albumin/Globulin Ratio 0.9 (1.0-1.7) Urine Collection Type Unknown Urine Color Yellow Urine Clarity Clear Urine pH 6.0 Urine Specific [place] 1.025 Urine Protein Negativemg/dL (NEG-TRACE) Urine Glucose (UA) Negativemg/dL (NEG) Urine Ketones (Stick) Negativemg/dL (NEG) Urine Blood Negative (NEG) Urine Nitrite Positive (NEG) Urine Bilirubin Negative (NEG) Urine Urobilinogen Dipstick 0.2mg/dL (0.2 mg/dL) Urine Leukocyte Esterase Negative (NEG) Urine RBC Occ/HPF (0-2) Urine WBC 1-4/HPF (0-4) Urine Squamous Epithelial Cells Few/LPF Urine Bacteria Many/HPF (0-FEW) Urine Opiates Screen Neg (NEG) Urine Methadone Screen Neg (NEG) Urine Barbiturates Neg (NEG) Urine Phencyclidine Screen Neg (NEG) Urine Amphetamine/Methamphetamine Pos (NEG) Urine Benzodiazepines Screen Neg (NEG) Urine Cocaine Screen Neg (NEG) Urine Cannabinoids Screen Neg (NEG) Urine Ethyl Alcohol Neg (NEG) Laboratory Tests Test 03/17/17 06:15 White Blood Count 6.6x10^3/uL (4.0-11.0) Red Blood Count 4.66x10^6/uL (3.50-5.40) Hemoglobin 10.3g/dL (12.0-15.5) Hematocrit 33.4% (36.0-47.0) Mean Corpuscular Volume 72fL (79-100) Mean Corpuscular Hemoglobin 22pg (25-35) Mean Corpuscular Hemoglobin Concent 31g/dL (31-37) Red Cell Distribution Width 34.0% (11.5-14.5) Platelet Count 293x10^3/uL (140-400) Neutrophils (%) (Auto) 50% (31-73) Lymphocytes (%) (Auto) 38% (24-48) Monocytes (%) (Auto) 10% (0-9) Eosinophils (%) (Auto) 1% (0-3) Basophils (%) (Auto) 1% (0-3) Neutrophils # (Auto) 3.3x10^3uL (1.8-7.7) Lymphocytes # (Auto) 2.5x10^3/uL (1.0-4.8) Monocytes # (Auto) 0.6x10^3/uL (0.0-1.1) Eosinophils # (Auto) 0.1x10^3/uL (0.0-0.7) Basophils # (Auto) 0.1x10^3/uL (0.0-0.2) Sodium Level 139mmol/L (136-145) Potassium Level 3.8mmol/L (3.5-5.1) Chloride Level 105mmol/L (98-107) Carbon Dioxide Level 25mmol/L (21-32) Anion Gap 9 (6-14) Blood Urea Nitrogen 11mg/dL (7-20) Creatinine 1.0mg/dL (0.6-1.0) Estimated GFR (Cockcroft-Gault) 72.2 Glucose Level 88mg/dL (70-99) Calcium Level 8.5mg/dL (8.5-10.1) Brief Hospital Course Ms. Guadalupe is a 46 old AA female who was admitted initially for complex partial SZ, no recurrence, EEG done and co managed with neuro, no AED needed. BUt incidentally microcytic anemia hgb 7.6 on admit, denies heavy periods. ZARIA work up does not support ZARIA. Need to rule out sickle cell in this AA, Hgb electrophoresis pending. DOing well, Hgb 10 plus on dc Can ff up as oP heme onc re hgb electrophoresis- number given [facility] educn counselling done Time 31 mins Discharge Information Condition at Discharge: Improved, Stable Disposition/Orders: D/C to Home Scheduled Hydroxyzine Pamoate (Vistaril) 1 CAP PO TID Permethrin (Permethrin) 60 ML TP 1X Permethrin ([place]) 142 GM MC 1X Permethrin (Permethrin) 60 GM TP 1X Valacyclovir Hcl (Valtrex) 1 TAB PO BID SLICK ARRIOLA MD Mar 17, 2017 10:02
[2017-03-17 11:00] VITALS: BP 139/86
--- NOTE | 2017-03-17 11:46 | PDOC ---
PROGRESS NOTES Assessment Problems Medical Problems: (1) Microcytic anemia Status: Acute (2) Seizure Status: Acute (3) Symptomatic anemia Status: Acute Epilepsy, negative workup, breakthrough seizure possibly related to anemia Plan Okay to discharge Hold on starting anticonvulsants and less seizure recurs Continued treatment and workup of anemia I informed the patient again that she cannot drive until she has gone 6 months without a seizure. Follow-up with neurology as needed. Subjective No complaints Objective Vital Signs Date Time Temp Pulse Resp B/P Pulse Ox O2 Delivery O2 Flow Rate FiO2 03/17/17 11:00 98.1 75 16 139/86 98 Room Air 98.1 Intake and Output 03/17/17 07:00 Intake Total 2340 ml Output Total 2200 ml Balance 140 ml Intake Oral 540 ml Blood Product IV Normal Saline Flush 1800 ml Output Urine Total 2200 ml PHYSICAL EXAM Alert. Oriented to time, place and person. PERRL. EOMI. CN: no focal findings. Muscle tone: normal. Muscle strength: 5/5 DTR: 2+ Plantar reflex: flexor Gait: normal. Sensory exam: no abnormal findings. No cerebellar signs elicited. Review of Relevant I have reviewed the following items pablo (where applicable) has been applied. Labs Laboratory Tests Test 03/16/17 00:15 03/16/17 00:35 03/16/17 01:23 03/17/17 06:15 White Blood Count 8.9x10^3/uL (4.0-11.0) 6.6x10^3/uL (4.0-11.0) Red Blood Count 3.80x10^6/uL (3.50-5.40) 4.66x10^6/uL (3.50-5.40) Hemoglobin 7.6g/dL (12.0-15.5) 10.3g/dL (12.0-15.5) Hematocrit 25.5% (36.0-47.0) 33.4% (36.0-47.0) Mean Corpuscular Volume 67fL (79-100) 72fL (79-100) Mean Corpuscular Hemoglobin 20pg (25-35) 22pg (25-35) Mean Corpuscular Hemoglobin Concent 30g/dL (31-37) 31g/dL (31-37) Red Cell Distribution Width 33.9% (11.5-14.5) 34.0% (11.5-14.5) Platelet Count 302x10^3/uL (140-400) 293x10^3/uL (140-400) Neutrophils (%) (Auto) 52% (31-73) 50% (31-73) Lymphocytes (%) (Auto) 36% (24-48) 38% (24-48) Monocytes (%) (Auto) 11% (0-9) 10% (0-9) Eosinophils (%) (Auto) 1% (0-3) 1% (0-3) Basophils (%) (Auto) 1% (0-3) 1% (0-3) Neutrophils # (Auto) 4.7x10^3uL (1.8-7.7) 3.3x10^3uL (1.8-7.7) Lymphocytes # (Auto) 3.2x10^3/uL (1.0-4.8) 2.5x10^3/uL (1.0-4.8) Monocytes # (Auto) 1.0x10^3/uL (0.0-1.1) 0.6x10^3/uL (0.0-1.1) Eosinophils # (Auto) 0.1x10^3/uL (0.0-0.7) 0.1x10^3/uL (0.0-0.7) Basophils # (Auto) 0.0x10^3/uL (0.0-0.2) 0.1x10^3/uL (0.0-0.2) Platelet Estimate Adequate (ADEQUATE) Polychromasia Slight Hypochromasia Mod Poikilocytosis Slight Microcytosis Marked Macrocytosis Slight Target Cells Occ Ovalocytes Occ Reticulocyte Count (auto) 1.5% (0.5-2.5) Sodium Level 139mmol/L (136-145) 139mmol/L (136-145) Potassium Level 3.6mmol/L (3.5-5.1) 3.8mmol/L (3.5-5.1) Chloride Level 107mmol/L (98-107) 105mmol/L (98-107) Carbon Dioxide Level 28mmol/L (21-32) 25mmol/L (21-32) Anion Gap 4 (6-14) 9 (6-14) Blood Urea Nitrogen 12mg/dL (7-20) 11mg/dL (7-20) Creatinine 1.2mg/dL (0.6-1.0) 1.0mg/dL (0.6-1.0) Estimated GFR (Cockcroft-Gault) 58.5 72.2 BUN/Creatinine Ratio 10 (6-20) Glucose Level 112mg/dL (70-99) 88mg/dL (70-99) Calcium Level 8.8mg/dL (8.5-10.1) 8.5mg/dL (8.5-10.1) Magnesium Level 2.0mg/dL (1.8-2.4) Iron Level 36ug/dL (50-170) Total Iron Binding Capacity 376ug/dL (250-450) Iron Saturation 10% (15-34) Ferritin 17ng/mL (8-252) Total Bilirubin 0.2mg/dL (0.2-1.0) Aspartate Amino Transf (AST/SGOT) 14U/L (15-37) Alanine Aminotransferase (ALT/SGPT) 18U/L (14-59) Alkaline Phosphatase 77U/L (46-116) Total Protein 6.6g/dL (6.4-8.2) Albumin 3.1g/dL (3.4-5.0) Albumin/Globulin Ratio 0.9 (1.0-1.7) Urine Collection Type Unknown Urine Color Yellow Urine Clarity Clear Urine pH 6.0 Urine Specific [place] 1.025 Urine Protein Negativemg/dL (NEG-TRACE) Urine Glucose (UA) Negativemg/dL (NEG) Urine Ketones (Stick) Negativemg/dL (NEG) Urine Blood Negative (NEG) Urine Nitrite Positive (NEG) Urine Bilirubin Negative (NEG) Urine Urobilinogen Dipstick 0.2mg/dL (0.2 mg/dL) Urine Leukocyte Esterase Negative (NEG) Urine RBC Occ/HPF (0-2) Urine WBC 1-4/HPF (0-4) Urine Squamous Epithelial Cells Few/LPF Urine Bacteria Many/HPF (0-FEW) Urine Opiates Screen Neg (NEG) Urine Methadone Screen Neg (NEG) Urine Barbiturates Neg (NEG) Urine Phencyclidine Screen Neg (NEG) Urine Amphetamine/Methamphetamine Pos (NEG) Urine Benzodiazepines Screen Neg (NEG) Urine Cocaine Screen Neg (NEG) Urine Cannabinoids Screen Neg (NEG) Urine Ethyl Alcohol Neg (NEG) Laboratory Tests Test 03/17/17 06:15 White Blood Count 6.6x10^3/uL (4.0-11.0) Red Blood Count 4.66x10^6/uL (3.50-5.40) Hemoglobin 10.3g/dL (12.0-15.5) Hematocrit 33.4% (36.0-47.0) Mean Corpuscular Volume 72fL (79-100) Mean Corpuscular Hemoglobin 22pg (25-35) Mean Corpuscular Hemoglobin Concent 31g/dL (31-37) Red Cell Distribution Width 34.0% (11.5-14.5) Platelet Count 293x10^3/uL (140-400) Neutrophils (%) (Auto) 50% (31-73) Lymphocytes (%) (Auto) 38% (24-48) Monocytes (%) (Auto) 10% (0-9) Eosinophils (%) (Auto) 1% (0-3) Basophils (%) (Auto) 1% (0-3) Neutrophils # (Auto) 3.3x10^3uL (1.8-7.7) Lymphocytes # (Auto) 2.5x10^3/uL (1.0-4.8) Monocytes # (Auto) 0.6x10^3/uL (0.0-1.1) Eosinophils # (Auto) 0.1x10^3/uL (0.0-0.7) Basophils # (Auto) 0.1x10^3/uL (0.0-0.2) Sodium Level 139mmol/L (136-145) Potassium Level 3.8mmol/L (3.5-5.1) Chloride Level 105mmol/L (98-107) Carbon Dioxide Level 25mmol/L (21-32) Anion Gap 9 (6-14) Blood Urea Nitrogen 11mg/dL (7-20) Creatinine 1.0mg/dL (0.6-1.0) Estimated GFR (Cockcroft-Gault) 72.2 Glucose Level 88mg/dL (70-99) Calcium Level 8.5mg/dL (8.5-10.1) Microbiology 03/16/17 Urine Culture - Preliminary, Resulted 03/16/17 Urine Culture Result 1 (ROM) - Preliminary, Resulted Medications Current Medications Sodium Chloride (Iv Sodium Chloride 0.9% 1000ml Bag) 1,000 ml @ 1,000 mls/hr 1X ONCE IV Last administered on 03/16/17 00:31; Start 03/15/17 at 23:15; Stop 03/16/17 at 00:14; Status DC Lorazepam (Ativan) 1 mg 1X ONCE IV Last administered on 03/16/17 00:31; Start 03/15/17 at 23:15; Stop 03/15/17 at 23:16; Status DC Ondansetron HCl (Zofran) 4 mg PRN Q8HRS PRN IV NAUSEA/VOMITING; Start 03/16/17 at 03:15; Stop 03/16/17 at 09:38; Status DC Morphine Sulfate 2 mg PRN Q2HR PRN IV SEVERE PAIN; Start 03/16/17 at 03:15; Stop 03/17/17 at 03:14; Status DC Acetaminophen 650 mg 650 mg PRN Q4HRS PRN PO FEVER; Start 03/16/17 at 03:15; Stop 03/17/17 at 03:14; Status DC Ceftriaxone Sodium (Rocephin 1gm Ivpb For Omni) 50 ml @ 100 mls/hr 1X ONCE IV Last administered on 03/16/17 03:37; Start 03/16/17 at 04:00; Stop 03/16/17 at 04:29; Status DC Hydralazine HCl (Apresoline) 10 mg PRN Q1HR PRN IVP HYPERTENSION, SEE COMMENTS ; Start 03/16/17 at 04:15 Ondansetron HCl 4 mg 4 mg PRN Q6HRS PRN IV NAUSEA/VOMITING; Start 03/16/17 at 09:35 Ceftriaxone Sodium/Sodium Chloride (Rocephin/Iv Sodium Chloride 0.9% 50ml) 50 ml @ 100 mls/hr Q24H IV Last administered on 03/17/17 05:23; Start 03/17/17 at 06:00 Hydroxyzine Pamoate (Vistaril) 25 mg TID PO Last administered on 03/17/17 09: 29; Start 03/16/17 at 14:00 Clonidine HCl (Catapres) 0.1 mg Q8HRS PO Last administered on 03/17/17 05:22; Start 03/16/17 at 14:00 Clonidine HCl (Catapres) 0.1 mg PRN Q1HR PRN PO HYPERTENSION, SEE COMMENTS; Start 03/16/17 at 13:30 Gadobutrol (Gadavist) 9 mmol 1X ONCE IV Last administered on 03/16/17 15:11; Start 03/16/17 at 15:15; Stop 03/16/17 at 15:16; Status DC Active Scripts Active Permethrin 60 Gm Cream..g. 60 Gm TP 1X Apply head to toe leave on for 8-12 hours and wash off. May repeat in 7 days. Vistaril (Hydroxyzine Pamoate) 25 Mg Capsule 1 Cap PO TID Valtrex (Valacyclovir Hcl) 1,000 Mg Tablet 1 Tab PO BID Bedding [place] (Permethrin) 142 Gm [place] 142 Gm MC 1X Permethrin 59 Ml Liquid 60 Ml TP 1X Vitals/I & O Vital Sign - Last 24 Hours 03/16/17 03/16/17 03/16/17 03/16/17 12:00 13:00 15:00 15:35 Temp 98.4 98.5 98.1 98.4 98.5 98.1 Pulse 75 74 72 74 Resp 18 18 18 B/P 181/91 165/91 155/89 165/91 Pulse Ox 98 O2 Delivery Room Air 03/16/17 03/16/17 03/16/17 03/16/17 18:00 19:10 20:00 21:12 Temp 99.3 98.1 99.3 98.1 Pulse 71 76 71 Resp 18 18 B/P 156/89 155/82 156/89 Pulse Ox 98 O2 Delivery Room Air Room Air 03/16/17 03/17/17 03/17/17 03/17/17 23:10 03:00 05:22 07:00 Temp 99.5 97.9 98.4 99.5 97.9 98.4 Pulse 66 64 64 56 Resp 18 16 16 B/P 168/86 162/87 162/87 173/73 Pulse Ox 97 98 98 O2 Delivery Room Air Room Air 03/17/17 03/17/17 08:00 11:00 Temp 98.1 98.1 Pulse 75 Resp 16 B/P 139/86 Pulse Ox 98 O2 Delivery Room Air Room Air Intake and Output 03/16/17 03/16/17 03/17/17 15:00 23:00 07:00 Intake Total 2000 ml 340 ml Output Total 400 ml 1800 ml Balance 1600 ml -1460 ml Images MRI brain with and without contrast, 03/16/17. HISTORY Seizures. TECHNIQUE Sagittal T1, axial T1, axial T2, axial FLAIR, axial T2 gradient, diffusion imaging with ADC map, post-contrast axial, and post-contrast coronal sequences are provided. Oblique coronal FLAIR through the temporal lobes was performed. Patient received 9 milliliters of intravenous Gadavist without complication. COMPARISON None. FINDINGS There is mild motion degradation. The ventricles and sulci are within normal limits for age. There is no acute intracranial hemorrhage or extra-axial fluid collection. There is no mass effect or midline shift. There is no restricted diffusion to suggest an acute infarct. Cervicomedullary junction is unremarkable. Pituitary and suprasellar region are unremarkable. Intracranial flow voids are preserved. There is ethmoid and maxillary mucosal thickening. Oblique coronal FLAIR imaging through the temporal lobes demonstrates no evidence of mesial temporal sclerosis or temporal lobe mass. IMPRESSION No acute intracranial findings. EEG, 03/16/17, normal awake and asleep TEJA MORRIS MD Mar 17, 2017 11:46
[2017-03-17 15:00] VITALS: BP 153/84
[2017-03-17 15:09] VITALS: BP 139/86
[2017-03-17 19:17] LABS: HAPTOGLOBIN 58 mg/dL (34-200)
[2017-03-18 15:32] LABS: HGB A 98.4 % (94.0-98.0); HGB A2 1.6 % (0.7-3.1); HGB ELECROPHORESIS COMMENT Note: (.)
== END 2017-03-17 15:40 | disposition home or self-care (01) | DRG 101 ==
LOC: ER 22:23 → 6 SOUTH 03-16 03:09
PROVIDERS: ADMIT Internal Medicine; ATTEND Internal Medicine
PROC: 30233N1 Transfusion of Nonautologous Red Blood Cells into Peripheral Vein, Percutaneous Approach (ICD-10-PCS; principal; 2017-03-16)
DX: G40.909 Epilepsy, unspecified, not intractable, without status epilepticus (principal); N39.0 Urinary tract infection, site not specified; J45.909 Unspecified asthma, uncomplicated; E11.9 Type 2 diabetes mellitus without complications; I10 Essential (primary) hypertension; D53.9 Nutritional anemia, unspecified
CPT/HCPCS: 36415; 70553; 80048; 80053; 81001; 82728; 83010; 83020; 83540; 83550; 83735; 85007; 85027; 85045; 86850; 86900; 86901; 86920; 87086; 87186; 93005; 95816; 96361; 96365; 96375; A9585; G0481; J0690; J0696; J2060; J7030; P9016; Q0177; 99285-25

== ENCOUNTER 2017-04-23 12:27 | Inpatient (IN) | payer OTHER ==
[2017-04-23] VITALS (7 sets, daily range): BP systolic 128–166; BP diastolic 65–103
[~2017-04-23] VITALS: Ht 157.5 cm; Wt 78.9 kg
[2017-04-23] MEDS ORDERED: IV NORMAL SALINE 1000ML BAG 1,000 ML IV SCH ×2 (13:16→14:58)
[2017-04-23] MEDS ORDERED: hydrALAZINE 20 MG/ML VIAL. IVP ONE (13:30)
[2017-04-23 14:11] LABS: BILIRUBIN,URINE NEGATIVE (NEG); GLUCOSE,URINE NEGATIVE (NEG); NITRITE,URINE NEGATIVE (NEG); PROTEIN,URINE NEGATIVE (NEG-TRACE); UROBILINOGEN,URINE 0.2 mg/dL (0.2 mg/dL)
[2017-04-23 14:16] LABS: BARBITURATES NEG (NEG); BENZODIAZEPINES NEG (NEG); CANNABINOIDS NEG (NEG); COCAINE NEG (NEG); METHADONE NEG (NEG); OPIATES NEG (NEG); PHENCYCLIDINE NEG (NEG)
[2017-04-23 14:21] LABS: BACTERIA,URINE 0 /HPF (0-FEW); SQUAMOUS EPITHELIAL CELL,UR FEW /LPF; WBC,URINE 0 /HPF (0-4)
[2017-04-23 14:25] LABS: BASO % 1 % (0-3); EOS % 1 % (0-3); HEMATOCRIT 36.3 % (36.0-47.0); HEMOGLOBIN 11.3 g/dL (12.0-15.5); LYMPH # 2.3 x10^3/uL (1.0-4.8); LYMPH % 30 % (24-48); MEAN CORPUSCULAR HEMOGLOBIN 24 pg (25-35); MEAN CORPUSCULAR HGB CONC 31 g/dL (31-37); MEAN CORPUSCULAR VOLUME 76 fL (79-100); MONO % 7 % (0-9); NEUT % 63 % (31-73); PLATELET COUNT 193 x10^3/uL (140-400); RED CELL DISTRIBUTION WIDTH 28.4 % (11.5-14.5); WHITE BLOOD COUNT 7.7 x10^3/uL (4.0-11.0)
--- NOTE | 2017-04-23 14:31 | RAD ---
Indication dizziness. Noncontrast images of the head were obtained. Note is made of an MRI examination of the head approximately 6 weeks ago interpreted as unremarkable. No acute calvarial finding is seen. The visualized paranasal sinuses appear unremarkable. There is no subdural or epidural hematoma. Benign-appearing calcifications are noted. The ventricles and sulci are within normal limits. There is no hemorrhage mass or acute finding seen. IMPRESSION: No acute intracranial finding PQRS Compliance Statement: One or more of the following individualized dose reduction techniques were utilized for this examination: 1. Automated exposure control 2. Adjustment of the mA and/or kV according to patient size 3. Use of iterative reconstruction technique
[2017-04-23 14:40] LABS: CALCIUM 9.5 mg/dL (8.5-10.1); GFR 72.2; POTASSIUM 3.4 mmol/L (3.5-5.1)
[2017-04-23 14:46] LABS: ALBUMIN 3.7 g/dL (3.4-5.0); ALBUMIN/GLOBULIN RATIO 0.8 (1.0-1.7); TOTAL BILIRUBIN 0.4 mg/dL (0.2-1.0); TOTAL PROTEIN 8.2 g/dL (6.4-8.2)
[2017-04-23 14:47] LABS: ANISOCYTOSIS MARKED; HYPOCHROMIA SLIGHT; PLT ESTIMATE ADEQUATE (ADEQUATE)
[2017-04-23 14:50] LABS: POIKILOCYTOSIS SLIGHT
[2017-04-23 14:55] LABS: CKMB MASS 0.6 ng/mL (0.0-3.6)
--- NOTE | 2017-04-23 14:58 | PHYS DOC ---
Past Medical History Past Medical History: Asthma, Diabetes-Type II, Hypertension Past Surgical History: No Surgical History Alcohol Use: None Drug Use: None Adult General Chief Complaint Chief Complaint: HYPERTENSION HPI HPI Patient is a 46 year old female who presents with complaint of headache and lightheadedness. 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 Patient states she has had history of hypertension but has been off of hypertension medication for several months. Patient follows Dr. Milligan for primary care. Patient follows with Dr. Rausch for hematology. Patient states that her dizziness and lightheadedness have been intermittent over the past few weeks but have become more frequent over the past few days. During triage, patient was found have a blood pressure of 230/100. Patient denies chest pain, shortness of breath, abdominal pain, nausea, vomiting, unilateral weakness, or vision changes. Due to critically high blood pressure, patient states that she was told to come to the emergency department for evaluation. Review of Systems Review of Systems Constitutional: Denies fever or chills [] Eyes: Denies change in visual acuity, redness, or eye pain [] HENT: Denies nasal congestion or sore throat [] Respiratory: Denies cough or shortness of breath [] Cardiovascular: Denies chest pain or edema [] GI: Denies abdominal pain, nausea, vomiting, bloody stools or diarrhea [] : Denies dysuria or hematuria [] Musculoskeletal: Denies back pain or joint pain [] Integument: Denies rash or skin lesions [] Neurologic: Dizziness, headache, denies focal weakness or sensory changes [] Current Medications Current Medications Current Medications Medications (Trade) Dose Ordered Sig/Pranay Start Time Stop Time Status Last Admin Dose Admin Hydralazine HCl (Apresoline) 10 mg 1X ONCE 04/23/17 13:30 04/23/17 13:31 DC 04/23/17 13:51 10 MG Nicardipine HCl 50 mg/Sodium Chloride 270 ml @ 0 mls/hr CONT PRN 04/23/17 14:30 04/23/17 14:48 25 MLS/HR Sodium Chloride 1,000 ml @ 100 mls/hr Q10H 04/23/17 13:16 04/23/17 23:15 04/23/17 13:50 100 MLS/HR Allergies Allergies Allergies Coded Allergies Type Severity Reaction Last Updated Verified No Known Drug Allergies 04/30/16 No Physical Exam Physical Exam Constitutional: Alert, afebrile, hypertensive, appears in mild discomfort. [] HENT: Normocephalic, atraumatic, bilateral external ears normal, oropharynx moist, no oral exudates, nose normal. [] Eyes: PERRLA, EOMI, conjunctiva normal, no discharge. [] Neck: Normal range of motion, no tenderness, supple, no stridor. [] Cardiovascular:Heart rate regular rhythm, no murmur [] Lungs & Thorax: Bilateral breath sounds clear to auscultation [] Abdomen: Bowel sounds normal, soft, no tenderness, no masses, no pulsatile masses. [] Skin: Warm, dry, no erythema, no rash. [] Back: No tenderness, no CVA tenderness. [] Extremities: No tenderness, no cyanosis, no clubbing, ROM intact, no edema. [] Neurologic: Alert and oriented X 3, normal motor function, normal sensory function, no focal deficits noted. [] Current Patient Data Vital Signs Vital Signs Date Time Temp Pulse Resp B/P (MAP) Pulse Ox O2 Delivery O2 Flow Rate FiO2 04/23/17 13:51 68 224/108 04/23/17 12:49 98.3 20 100 Room Air 98.3 Lab Values Laboratory Tests Test 04/23/17 13:06 04/23/17 13:50 04/23/17 14:15 POC Urine HCG, Qualitative Hcg negative (Negative) Urine Collection Type Unknown Urine Color Yellow Urine Clarity Clear Urine pH 7.0 Urine Specific [place] 1.015 Urine Protein Negative mg/dL (NEG-TRACE) Urine Glucose (UA) Negative mg/dL (NEG) Urine Ketones (Stick) Negative mg/dL (NEG) Urine Blood Negative (NEG) Urine Nitrite Negative (NEG) Urine Bilirubin Negative (NEG) Urine Urobilinogen Dipstick 0.2 mg/dL (0.2 mg/dL) Urine Leukocyte Esterase Negative (NEG) Urine RBC 1-2 /HPF (0-2) Urine WBC 0 /HPF (0-4) Urine Squamous Epithelial Cells Few /LPF Urine Bacteria 0 /HPF (0-FEW) Urine Mucus Slight /LPF Urine Opiates Screen Neg (NEG) Urine Methadone Screen Neg (NEG) Urine Barbiturates Neg (NEG) Urine Phencyclidine Screen Neg (NEG) Urine Amphetamine/Methamphetamine Neg (NEG) Urine Benzodiazepines Screen Neg (NEG) Urine Cocaine Screen Neg (NEG) Urine Cannabinoids Screen Neg (NEG) Urine Ethyl Alcohol Neg (NEG) White Blood Count 7.7 x10^3/uL (4.0-11.0) Red Blood Count 4.80 x10^6/uL (3.50-5.40) Hemoglobin 11.3 g/dL (12.0-15.5) L Hematocrit 36.3 % (36.0-47.0) Mean Corpuscular Volume 76 fL (79-100) L Mean Corpuscular Hemoglobin 24 pg (25-35) L Mean Corpuscular Hemoglobin Concent 31 g/dL (31-37) Red Cell Distribution Width 28.4 % (11.5-14.5) H Platelet Count 193 x10^3/uL (140-400) Neutrophils (%) (Auto) 63 % (31-73) Lymphocytes (%) (Auto) 30 % (24-48) Monocytes (%) (Auto) 7 % (0-9) Eosinophils (%) (Auto) 1 % (0-3) Basophils (%) (Auto) 1 % (0-3) Neutrophils # (Auto) 4.8 x10^3uL (1.8-7.7) Lymphocytes # (Auto) 2.3 x10^3/uL (1.0-4.8) Monocytes # (Auto) 0.5 x10^3/uL (0.0-1.1) Eosinophils # (Auto) 0.0 x10^3/uL (0.0-0.7) Basophils # (Auto) 0.0 x10^3/uL (0.0-0.2) Platelet Estimate Adequate (ADEQUATE) Large Platelets Occ Giant Platelets Occ Hypochromasia Slight Poikilocytosis Slight Anisocytosis Marked Sodium Level 140 mmol/L (136-145) Potassium Level 3.4 mmol/L (3.5-5.1) L Chloride Level 103 mmol/L (98-107) Carbon Dioxide Level 29 mmol/L (21-32) Anion Gap 8 (6-14) Blood Urea Nitrogen 12 mg/dL (7-20) Creatinine 1.0 mg/dL (0.6-1.0) Estimated GFR (Cockcroft-Gault) 72.2 BUN/Creatinine Ratio 12 (6-20) Glucose Level 103 mg/dL (70-99) H Calcium Level 9.5 mg/dL (8.5-10.1) Total Bilirubin 0.4 mg/dL (0.2-1.0) Aspartate Amino Transferase (AST) 18 U/L (15-37) Alanine Aminotransferase (ALT) 26 U/L (14-59) Alkaline Phosphatase 90 U/L (46-116) Total Protein 8.2 g/dL (6.4-8.2) Albumin 3.7 g/dL (3.4-5.0) Albumin/Globulin Ratio 0.8 (1.0-1.7) L Laboratory Tests 04/23/17 14:15 Laboratory Tests 04/23/17 14:15 EKG EKG Interpreted by me: Heart rate 62, sinus rhythm, normal intervals, normal axis, T -wave inversions in leads 3 and aVF [] Radiology/Procedures Radiology/Procedures [facility] [address] [place] [address] IMAGING REPORT Signed PATIENT: RANJIT AMBROCIO ACCOUNT: [id number] : 1970 LOCATION: ER AGE: 46 SEX: F EXAM STATUS: REG ER ORD. PHYSICIAN: LOLITA STALLINGS MD REASON: dizziness, headache, critically elevated blood pressure PROCEDURE: CT HEAD WO CONTRAST Indication dizziness. Noncontrast images of the head were obtained. Note is made of an MRI examination of the head approximately 6 weeks ago interpreted as unremarkable. No acute calvarial finding is seen. The visualized paranasal sinuses appear unremarkable. There is no subdural or epidural hematoma. Benign-appearing calcifications are noted. The ventricles and sulci are within normal limits. There is no hemorrhage mass or acute finding seen. IMPRESSION: No acute intracranial finding PQRS Compliance Statement: One or more of the following individualized dose reduction techniques were utilized for this examination: 1. Automated exposure control 2. Adjustment of the mA and/or kV according to patient size 3. Use of iterative reconstruction technique DICTATED and SIGNED BY: JOLYNN TRISTAN MD DATE: 04/23/17 [id number] CC: LOLITA STALLINGS MD; ROSALEE MILLIGAN MD ~ [] Course & Med Decision Making Course & Med Decision Making Pertinent Labs and Imaging studies reviewed. (See chart for details) Patient started on IV hydralazine in the emergency department. Patient's blood pressure remained at 194/92 and patient continued to have dizziness and headache. The patient was thus started on IV Cardene for continuous infusion for treatment of accelerated hypertension. Patient will be admitted for further treatment. I spoke with Dr. Spring who accepted care of patient in hospital. Critical care time excluding procedures: 35 minutes Dragon Disclaimer Dragon Disclaimer This electronic medical record was generated, in whole or in part, using a voice recognition dictation system. Departure Departure Impression: Primary Impression: Accelerated hypertension Disposition: ADMITTED INPATIENT Admitting Physician: Rea Spring Condition: GUARDED Referrals: ROSALEE MILLIGAN MD (PCP) LOLITA STALLINGS MD April 23, 2017 14:58
[2017-04-23] MEDS ORDERED: ONDANSETRON PF 4 MG/2 ML VIAL. IV PRN ×2 (15:00→15:45)
[2017-04-23] MEDS ORDERED: fentaNYL PF VIAL 100 MCG/2 ML VIAL IV PRN (15:00)
[2017-04-23] MEDS ORDERED: ACETAMINOPHEN 325 MG TABLET. PO PRN ×2 (15:00→15:45)
--- NOTE | 2017-04-23 15:26 | PDOC1 ---
History and Physical Date of Admission Date of Admission 04/23/17 Identification/Chief Complaint Chief Complaint sent from office for HTN Problems: Source Source: Chart review, Patient History of Present Illness History of Present Illness HPI Patient is a 46 year old female who presents with complaint of headache and lightheadedness recently, was sent from dr. Rausch office for HTN. Pt told me only had HTN, AND DM before, for which she was off meds. AND recently diagnosed Anemia wo clear etiology as per pt required 2u PRBC transfusion. However, i found she was here 02/2017 for seizure. Pt was seen in DR. Rausch office today for anemia follow up, was found BP >200 and sent here. In ER, BP >230, is on cardine drip now. Pt has been feeling mild lightheaded recently, otherwise no chest pain, sob, N/V , abd pain. She has asthma intermittent, use some inhaler which she cannot tell me the details and said it is not working well. Denies heavy menstrual period, black or bloody stool, but use NSADIS sometimes, cannot tell me details too. Pt said her BP was normal 1 m ago with PCP, off HTN meds for a while. Past Medical History Cardiovascular: HTN Pulmonary: Asthma CENTRAL NERVOUS SYSTEM: Seizure Infectious disease: Herpes simplex2 Endocrine: Diabetes Past Surgical History Past Surgical History: No pertinent history Family History Family History Mom has anemia, NM Social History ALCOHOL: occassional Drugs: Cocaine Current Problem List Problem List Problems Medical Problems: (1) Accelerated hypertension Status: Acute Current Medications Current Medications Current Medications Medications (Trade) Dose Ordered Sig/Pranay Start Time Stop Time Status Last Admin Dose Admin Acetaminophen (Tylenol) 650 mg PRN Q4HRS PRN 04/23/17 15:00 04/24/17 14:59 Fentanyl Citrate (Fentanyl 2ml Vial) 50 mcg PRN Q2HR PRN 04/23/17 15:00 04/24/17 14:59 Hydralazine HCl (Apresoline) 10 mg 1X ONCE 04/23/17 13:30 04/23/17 13:31 DC 04/23/17 13:51 10 MG Nicardipine HCl 50 mg/Sodium Chloride 270 ml @ 0 mls/hr CONT PRN 04/23/17 14:30 04/23/17 14:48 25 MLS/HR Ondansetron HCl (Zofran) 4 mg PRN Q8HRS PRN 04/23/17 15:00 04/24/17 14:59 Sodium Chloride 1,000 ml @ 100 mls/hr Q10H 04/23/17 14:58 04/24/17 14:57 Allergies Allergies Allergies Coded Allergies Type Severity Reaction Last Updated Verified No Known Drug Allergies 04/30/16 No ROS Review of System CONSTITUTIONAL: No fever or chills EYES: No recent changes SKIN: No rash or itching CARDIOVASCULAR: No chest pain, syncope, palpitations, or edema RESPIRATORY: No SOB or cough GASTROINTESTINAL: No nausea, vomiting or abdominal pain NEUROLOGICAL: No headaches or weakness ENDOCRINE: No cold or heat intolerance GENITOURINARY: No urgency or frequency of urination MUSCULOSKELETAL: No back pain or joint pain LYMPHATICS: No enlarged lymph nodes PSYCHIATRIC: No anxiety or depression Physical Exam Physical Exam GEN.: No apparent distress. Alert and oriented. HEENT: Head is normocephalic, atraumatic NECK: Supple. LUNGS: Clear to auscultation. HEART: RRR, S1, S2 present. Peripheral pulses intact ABDOMEN: Soft, nontender. Positive bowel sounds. EXTREMITIES: Without any cyanosis. NEUROLOGIC: Normal speech, normal tone PSYCHIATRIC: Normal affect, normal mood. SKIN: No ulcerations Vitals Vitals Vital Signs Date Time Temp Pulse Resp B/P (MAP) Pulse Ox O2 Delivery O2 Flow Rate FiO2 04/23/17 14:54 83 24 169/97 (121) 100 Room Air 04/23/17 12:49 98.3 98.3 Labs Labs Laboratory Tests Test 04/23/17 13:06 04/23/17 13:50 04/23/17 14:15 Bedside Urine HCG, Qualitative Hcg negative (Negative) Urine Collection Type Unknown Urine Color Yellow Urine Clarity Clear Urine pH 7.0 Urine Specific [place] 1.015 Urine Protein Negative mg/dL (NEG-TRACE) Urine Glucose (UA) Negative mg/dL (NEG) Urine Ketones (Stick) Negative mg/dL (NEG) Urine Blood Negative (NEG) Urine Nitrite Negative (NEG) Urine Bilirubin Negative (NEG) Urine Urobilinogen Dipstick 0.2 mg/dL (0.2 mg/dL) Urine Leukocyte Esterase Negative (NEG) Urine RBC 1-2 /HPF (0-2) Urine WBC 0 /HPF (0-4) Urine Squamous Epithelial Cells Few /LPF Urine Bacteria 0 /HPF (0-FEW) Urine Mucus Slight /LPF Urine Opiates Screen Neg (NEG) Urine Methadone Screen Neg (NEG) Urine Barbiturates Neg (NEG) Urine Phencyclidine Screen Neg (NEG) Urine Amphetamine/Methamphetamine Neg (NEG) Urine Benzodiazepines Screen Neg (NEG) Urine Cocaine Screen Neg (NEG) Urine Cannabinoids Screen Neg (NEG) Urine Ethyl Alcohol Neg (NEG) White Blood Count 7.7 x10^3/uL (4.0-11.0) Red Blood Count 4.80 x10^6/uL (3.50-5.40) Hemoglobin 11.3 g/dL (12.0-15.5) Hematocrit 36.3 % (36.0-47.0) Mean Corpuscular Volume 76 fL (79-100) Mean Corpuscular Hemoglobin 24 pg (25-35) Mean Corpuscular Hemoglobin Concent 31 g/dL (31-37) Red Cell Distribution Width 28.4 % (11.5-14.5) Platelet Count 193 x10^3/uL (140-400) Neutrophils (%) (Auto) 63 % (31-73) Lymphocytes (%) (Auto) 30 % (24-48) Monocytes (%) (Auto) 7 % (0-9) Eosinophils (%) (Auto) 1 % (0-3) Basophils (%) (Auto) 1 % (0-3) Neutrophils # (Auto) 4.8 x10^3uL (1.8-7.7) Lymphocytes # (Auto) 2.3 x10^3/uL (1.0-4.8) Monocytes # (Auto) 0.5 x10^3/uL (0.0-1.1) Eosinophils # (Auto) 0.0 x10^3/uL (0.0-0.7) Basophils # (Auto) 0.0 x10^3/uL (0.0-0.2) Platelet Estimate Adequate (ADEQUATE) Large Platelets Occ Giant Platelets Occ Hypochromasia Slight Poikilocytosis Slight Anisocytosis Marked Sodium Level 140 mmol/L (136-145) Potassium Level 3.4 mmol/L (3.5-5.1) Chloride Level 103 mmol/L (98-107) Carbon Dioxide Level 29 mmol/L (21-32) Anion Gap 8 (6-14) Blood Urea Nitrogen 12 mg/dL (7-20) Creatinine 1.0 mg/dL (0.6-1.0) Estimated GFR (Cockcroft-Gault) 72.2 BUN/Creatinine Ratio 12 (6-20) Glucose Level 103 mg/dL (70-99) Calcium Level 9.5 mg/dL (8.5-10.1) Total Bilirubin 0.4 mg/dL (0.2-1.0) Aspartate Amino Transf (AST/SGOT) 18 U/L (15-37) Alanine Aminotransferase (ALT/SGPT) 26 U/L (14-59) Alkaline Phosphatase 90 U/L (46-116) Creatine Kinase 124 U/L (26-192) Creatine Kinase MB (Mass) 0.6 ng/mL (0.0-3.6) Creatine Kinase MB Relative Index 0.5 % (0-4) Total Protein 8.2 g/dL (6.4-8.2) Albumin 3.7 g/dL (3.4-5.0) Albumin/Globulin Ratio 0.8 (1.0-1.7) Laboratory Tests Test 04/23/17 13:06 04/23/17 13:50 04/23/17 14:15 Bedside Urine HCG, Qualitative Hcg negative (Negative) Urine Collection Type Unknown Urine Color Yellow Urine Clarity Clear Urine pH 7.0 Urine Specific [place] 1.015 Urine Protein Negative mg/dL (NEG-TRACE) Urine Glucose (UA) Negative mg/dL (NEG) Urine Ketones (Stick) Negative mg/dL (NEG) Urine Blood Negative (NEG) Urine Nitrite Negative (NEG) Urine Bilirubin Negative (NEG) Urine Urobilinogen Dipstick 0.2 mg/dL (0.2 mg/dL) Urine Leukocyte Esterase Negative (NEG) Urine RBC 1-2 /HPF (0-2) Urine WBC 0 /HPF (0-4) Urine Squamous Epithelial Cells Few /LPF Urine Bacteria 0 /HPF (0-FEW) Urine Mucus Slight /LPF Urine Opiates Screen Neg (NEG) Urine Methadone Screen Neg (NEG) Urine Barbiturates Neg (NEG) Urine Phencyclidine Screen Neg (NEG) Urine Amphetamine/Methamphetamine Neg (NEG) Urine Benzodiazepines Screen Neg (NEG) Urine Cocaine Screen Neg (NEG) Urine Cannabinoids Screen Neg (NEG) Urine Ethyl Alcohol Neg (NEG) White Blood Count 7.7 x10^3/uL (4.0-11.0) Red Blood Count 4.80 x10^6/uL (3.50-5.40) Hemoglobin 11.3 g/dL (12.0-15.5) Hematocrit 36.3 % (36.0-47.0) Mean Corpuscular Volume 76 fL (79-100) Mean Corpuscular Hemoglobin 24 pg (25-35) Mean Corpuscular Hemoglobin Concent 31 g/dL (31-37) Red Cell Distribution Width 28.4 % (11.5-14.5) Platelet Count 193 x10^3/uL (140-400) Neutrophils (%) (Auto) 63 % (31-73) Lymphocytes (%) (Auto) 30 % (24-48) Monocytes (%) (Auto) 7 % (0-9) Eosinophils (%) (Auto) 1 % (0-3) Basophils (%) (Auto) 1 % (0-3) Neutrophils # (Auto) 4.8 x10^3uL (1.8-7.7) Lymphocytes # (Auto) 2.3 x10^3/uL (1.0-4.8) Monocytes # (Auto) 0.5 x10^3/uL (0.0-1.1) Eosinophils # (Auto) 0.0 x10^3/uL (0.0-0.7) Basophils # (Auto) 0.0 x10^3/uL (0.0-0.2) Platelet Estimate Adequate (ADEQUATE) Large Platelets Occ Giant Platelets Occ Hypochromasia Slight Poikilocytosis Slight Anisocytosis Marked Sodium Level 140 mmol/L (136-145) Potassium Level 3.4 mmol/L (3.5-5.1) Chloride Level 103 mmol/L (98-107) Carbon Dioxide Level 29 mmol/L (21-32) Anion Gap 8 (6-14) Blood Urea Nitrogen 12 mg/dL (7-20) Creatinine 1.0 mg/dL (0.6-1.0) Estimated GFR (Cockcroft-Gault) 72.2 BUN/Creatinine Ratio 12 (6-20) Glucose Level 103 mg/dL (70-99) Calcium Level 9.5 mg/dL (8.5-10.1) Total Bilirubin 0.4 mg/dL (0.2-1.0) Aspartate Amino Transf (AST/SGOT) 18 U/L (15-37) Alanine Aminotransferase (ALT/SGPT) 26 U/L (14-59) Alkaline Phosphatase 90 U/L (46-116) Creatine Kinase 124 U/L (26-192) Creatine Kinase MB (Mass) 0.6 ng/mL (0.0-3.6) Creatine Kinase MB Relative Index 0.5 % (0-4) Total Protein 8.2 g/dL (6.4-8.2) Albumin 3.7 g/dL (3.4-5.0) Albumin/Globulin Ratio 0.8 (1.0-1.7) VTE Prophylaxis Ordered VTE Prophylaxis Devices: Yes VTE Pharmacological Prophylaxi: Yes Assessment/Plan Assessment/Plan 1. accelerated HTN 2. h/o HTN, DM2, OFF meds 3. intermittent asthma 4. obesity 5. hypokalemia 6. h/o anemia wo clear etiology 7 htn urgency plan: card consult hold onco consult since Hb not too low now as per card, hctz, labetolol added, taper cardine drip anemia check up dvt ppx replete K Albuterol prn KAROLINA OROZCO MD April 23, 2017 15:26
[2017-04-23] MEDS ORDERED: LABETALOL 20 MG/4 ML DISP.SYRIN. IVP PRN (15:30)
--- NOTE | 2017-04-23 15:33 | PDOC2 ---
CARDIAC CONSULT DATE OF CONSULT Date of Consult DATE: 04/23/17 TIME: 15:14 REASON FOR CONSULT Reason for Consult: Accelerated HTN REFERRING PHYSICIAN Referring Physician: Sanna SOURCE Source: Chart review, Patient HISTORY OF PRESENT ILLNESS HISTORY OF PRESENT ILLNESS This is a pleasant 46 yo female admitted for complains of high blood pressure with symptoms of occasional BARRETT and dizziness. Reports that she has had HTN and was on medications in the past but got better. She also was noted with DM2 and was placed on medications and taken off it 3 months ago since her BG have been fine. She was 280 pounds then went down to about 190 lbs. She also had some back injury and has been receiving treatments from pain clinic in which she received a shot for her lower back on and was noted with SBP in the 170s and was advised to be seen by her PCP. Las 02/2017 her BP at that time was also erratic and elevated. Today she went to her head transfer clerk to be evaluated for the first time in relation to her anemia which she required blood transfusion on 02/2017 and noted her BP to be significantly elevated. She was advised to go to ED and was noted with BP at 230/110s. In the last few days she has been having intermittent frontal dull throbbing BARRETT. Also she has been having intermittent dizziness but no falls or any injury. Denies any visual or auditory disturbances, unilateral weakness, confusion, dysarthria, or facial droop. Reports that she used to be on weight loss pills indicating that was the cause why she was positive for amphetamines at one point. Denies any recreational drug use, no prior VTE, CAD, CVA. Presently she has mild BARRETT but otherwise feels ok. Denies any CP, palpitations nor SOA. PAST MEDICAL HISTORY Cardiovascular: HTN Pulmonary: Asthma CENTRAL NERVOUS SYSTEM: Seizure (childhood and recently in 02/2017 with suspect being significant anemia) GI: No pertinent hx Heme/Onc: Anemia NOS Hepatobiliary: No pertinent hx Psych: No pertinent hx Musculoskeletal: low back pain (started 07/2017 became chronic induced by fall. ), Osteoarthritis, Other (obesity) Infectious disease: Herpes simplex2 ENT: No pertinent hx Renal/: UTI Endocrine: Diabetes (2) Dermatology: Other Grav: 3 Para: 3 PAST SURGICAL HISTORY Past Surgical History: (x3, The plan was to also have tubal ligation at that time but not sure since it became an emergency on her last ) FAMILY HISTORY Family History: Heart Disease (mother) SOCIAL HISTORY Smoke: No ALCOHOL: none CURRENT MEDICATIONS CURRENT MEDICATIONS Current Medications Medications (Trade) Dose Ordered Sig/Pranay Route PRN Reason Start Time Stop Time Status Last Admin Dose Admin Sodium Chloride 1,000 ml @ 100 mls/hr Q10H IV 04/23/17 13:16 04/23/17 23:15 04/23/17 13:50 Hydralazine HCl (Apresoline) 10 mg 1X ONCE IVP 04/23/17 13:30 04/23/17 13:31 DC 04/23/17 13:51 Nicardipine HCl 50 mg/Sodium Chloride 270 ml @ 0 mls/hr CONT PRN IV SEE I/O RECORD 04/23/17 14:30 04/23/17 14:48 ALLERGIES ALLERGIES: Coded Allergies: No Known Drug Allergies (Unverified , 04/30/16) ROS Review of System 14 point ROS evaluated with pertinent positives noted per HPI PHYSICAL EXAM General: Alert, Oriented X3, Cooperative, No acute distress HEENT: Atraumatic, Mucous membr. moist/pink Lungs: Clear to auscultation, Normal air movement Heart: Regular rate (SR), Normal S1, Normal S2, Other (S4; 2/6 systolic murmur to LLS border) Abdomen: Soft, No tenderness Extremities: No cyanosis, No edema Skin: No breakdown, No significant lesion Neuro: Normal speech, Sensation intact Psych/Mental Status: Mental status NL, Mood NL MUSCULOSKELETAL: Full range of motion without pain VITALS VITALS Vital Signs Date Time Temp Pulse Resp B/P (MAP) Pulse Ox O2 Delivery O2 Flow Rate FiO2 04/23/17 14:54 83 24 169/97 (121) 100 Room Air 04/23/17 12:49 98.3 98.3 LABS Lab: Laboratory Tests Test 04/23/17 13:06 04/23/17 13:50 04/23/17 14:15 Bedside Urine HCG, Qualitative Hcg negative (Negative) Urine Collection Type Unknown Urine Color Yellow Urine Clarity Clear Urine pH 7.0 Urine Specific [place] 1.015 Urine Protein Negative mg/dL (NEG-TRACE) Urine Glucose (UA) Negative mg/dL (NEG) Urine Ketones (Stick) Negative mg/dL (NEG) Urine Blood Negative (NEG) Urine Nitrite Negative (NEG) Urine Bilirubin Negative (NEG) Urine Urobilinogen Dipstick 0.2 mg/dL (0.2 mg/dL) Urine Leukocyte Esterase Negative (NEG) Urine RBC 1-2 /HPF (0-2) Urine WBC 0 /HPF (0-4) Urine Squamous Epithelial Cells Few /LPF Urine Bacteria 0 /HPF (0-FEW) Urine Mucus Slight /LPF Urine Opiates Screen Neg (NEG) Urine Methadone Screen Neg (NEG) Urine Barbiturates Neg (NEG) Urine Phencyclidine Screen Neg (NEG) Urine Amphetamine/Methamphetamine Neg (NEG) Urine Benzodiazepines Screen Neg (NEG) Urine Cocaine Screen Neg (NEG) Urine Cannabinoids Screen Neg (NEG) Urine Ethyl Alcohol Neg (NEG) White Blood Count 7.7 x10^3/uL (4.0-11.0) Red Blood Count 4.80 x10^6/uL (3.50-5.40) Hemoglobin 11.3 g/dL (12.0-15.5) Hematocrit 36.3 % (36.0-47.0) Mean Corpuscular Volume 76 fL (79-100) Mean Corpuscular Hemoglobin 24 pg (25-35) Mean Corpuscular Hemoglobin Concent 31 g/dL (31-37) Red Cell Distribution Width 28.4 % (11.5-14.5) Platelet Count 193 x10^3/uL (140-400) Neutrophils (%) (Auto) 63 % (31-73) Lymphocytes (%) (Auto) 30 % (24-48) Monocytes (%) (Auto) 7 % (0-9) Eosinophils (%) (Auto) 1 % (0-3) Basophils (%) (Auto) 1 % (0-3) Neutrophils # (Auto) 4.8 x10^3uL (1.8-7.7) Lymphocytes # (Auto) 2.3 x10^3/uL (1.0-4.8) Monocytes # (Auto) 0.5 x10^3/uL (0.0-1.1) Eosinophils # (Auto) 0.0 x10^3/uL (0.0-0.7) Basophils # (Auto) 0.0 x10^3/uL (0.0-0.2) Platelet Estimate Adequate (ADEQUATE) Large Platelets Occ Giant Platelets Occ Hypochromasia Slight Poikilocytosis Slight Anisocytosis Marked Sodium Level 140 mmol/L (136-145) Potassium Level 3.4 mmol/L (3.5-5.1) Chloride Level 103 mmol/L (98-107) Carbon Dioxide Level 29 mmol/L (21-32) Anion Gap 8 (6-14) Blood Urea Nitrogen 12 mg/dL (7-20) Creatinine 1.0 mg/dL (0.6-1.0) Estimated GFR (Cockcroft-Gault) 72.2 BUN/Creatinine Ratio 12 (6-20) Glucose Level 103 mg/dL (70-99) Calcium Level 9.5 mg/dL (8.5-10.1) Total Bilirubin 0.4 mg/dL (0.2-1.0) Aspartate Amino Transf (AST/SGOT) 18 U/L (15-37) Alanine Aminotransferase (ALT/SGPT) 26 U/L (14-59) Alkaline Phosphatase 90 U/L (46-116) Creatine Kinase 124 U/L (26-192) Creatine Kinase MB (Mass) 0.6 ng/mL (0.0-3.6) Creatine Kinase MB Relative Index 0.5 % (0-4) Total Protein 8.2 g/dL (6.4-8.2) Albumin 3.7 g/dL (3.4-5.0) Albumin/Globulin Ratio 0.8 (1.0-1.7) ASSESSMENT/PLAN ASSESSMENT/PLAN 1. Accelerated HTN: initial reading 233/116. Possible hypertensive heart disease. EKG SR without acute changes by comparison, Neg Tox screen. 2. Presyncope/BARRETT: likely due to #1. CT head no acute changes. 3. DM2: taken off meds about 2 months ago due to consistently good BG 4. Obesity: used to be 280 lbs 5. Microcytic hypochromic anemia: blood transfusion received in 02/2017. Sees Dr. Rausch Recommendations 1. On cardene drip and will titrate down per BP readings 2. Still has monthly menstrual cycle. No forms of contraception. Start on HCTZ. replace K, start on labetolol po. Labetolol IV PRN. 3. TTE, CXR, lipids, TSH 4. Discussed treatment plan with pt. 5. Dietitian consult, DASH diet Problems: SHAKILA PRIDE SHOWER ROOM ATTENDANT April 23, 2017 15:33
[2017-04-23] MEDS ORDERED: ALBUTEROL SULFATE 2.5 MG/3 ML NEBU. NEB PRN (15:45)
[2017-04-23] MEDS ORDERED: hydrALAZINE 20 MG/ML VIAL. IVP PRN (15:45)
[2017-04-23] MEDS ORDERED: MORPHINE SULFATE 2 MG/ML DISP.SYRIN. IV PRN (15:45)
[2017-04-23] MEDS ORDERED: DOCUSATE SODIUM 100 MG CAPSULE. PO PRN (15:45)
[2017-04-23] MEDS ORDERED: traMADol 50 MG TABLET PO PRN (15:45)
--- NOTE | 2017-04-23 15:47 | ACF ---
Admission Forms Criteria HYPERTENSION Clinical Indications for Admission to Inpatient Care ( Place "X" for any and all applicable criteria): Admission is indicated for ANY ONE of the following(1)(2)(3)(4): [ ]I. Hypertensive emergency, with evidence of acute and progressing target organ disease as indicated by ANY ONE of the following: [ ]a) Hypertensive encephalopathy (eg, confusion, altered mental status) [ ]b) Cerebral infarction [ ]c) Intracranial hemorrhage [ ]d) Myocardial ischemia or infarction [ ]e) Pulmonary edema [ ]f) Aortic dissection [ ]g) Seizure [ ]h) Acute renal insufficiency [ ]i) Papilledema [ ]j) Microangiopathic hemolytic anemia [ ]II. Adrenergic crisis (eg, severe hypertension due to pheochromocytoma crisis, cocaine or amphetamine intoxication, or clonidine withdrawal) [X]III. Severe hypertension (SBP greater than 180 mmHg or DBP greater than 110 mmHg or greater than the 95th percentile for age, gender, and height in pediatric patients) that cannot be controlled (eg, to SBP less than 160 mmHg and DBP less than 100 mmHg in adults) by treatment with oral medication in emergency department or observation care Extended stay beyond goal length of stay may be needed for(11)(12)(13): [ ]a) Persistent hypertensive encephalopathy [ ]b) Continuation of pulmonary edema [ ]c) Recurring or persistent severe hypertension [ ]d) Target organ damage (eg, angina, stroke, aortic dissection) [ ]e) Associated renal insufficiency The original [facility] content created by [employer] has been revised. The portions of the content which have been revised are identified through the use of italic text or in bold, and [facility] has neither reviewed nor approved the modified material. All other unmodified content is copyright [facility]. Please see references footnoted in the original [facility] edition 2016 Admission Criteria Met?: Yes HARRISON HARRISON April 23, 2017 15:47
[2017-04-23] MEDS ORDERED: POTASSIUM CHLORIDE 20 MEQ TABLET.ER. PO ONE ×2 (16:00)
[2017-04-23] MEDS ORDERED: ENOXAPARIN 40 MG/0.4 ML SYRINGE. SQ SCH (16:00)
--- NOTE | 2017-04-23 16:22 | RAD ---
Chest, 2 views, 04/23/2017: History: High blood pressure The heart size and pulmonary vascularity are normal. No pulmonary infiltrates are seen. There is no evidence of pleural fluid. Mild spurring is present in the spine. IMPRESSION: No acute cardiopulmonary abnormality is detected.
--- NOTE | 2017-04-23 16:38 | EKG ---
[facility] [address] [place] [address] Test Date: 2017-04-23 Test Time: 13:25:13 Pat Name: RANJIT AMBROCIO Department: Room: 260 1 Gender: F [employer] Manager: : 1970 Requested By: LOLITA STALLINGS Order Number: [id number] Reading MD: Aislinn Escalante Measurements Intervals [place] Rate: 62 P: 27 TX: 158 QRS: 0 QRSD: 78 T: -14 QT: 390 QTc: 398 Interpretive Statements SINUS RHYTHM LEFTWARD AXIS QRS(T) CONTOUR ABNORMALITY CANNOT RULE OUT ANTEROSEPTAL MYOCARDIAL DAMAGE T ABNORMALITY IN INFERIOR LEADS RI6.01 Unconfirmed report Compared to ECG 03/15/2017 22:41:44 Left-axis deviation now present T-wave abnormality now present Electronically Signed On 04-25-2017 15:33:53 CDT by Aislinn Escalante
[2017-04-23] MEDS: hydroCHLOROthiazide 25 MG TABLET PO SCH (18:18)
[2017-04-23] MEDS ORDERED: METOCLOPRAMIDE HCL 10 MG/2 ML VIAL. IV PRN (21:00)
[2017-04-23] MEDS: LABETALOL HCL 200 MG TABLET PO SCH (22:06)
[2017-04-24 00:05] VITALS: BP 148/89
[2017-04-24 01:05] VITALS: BP 152/85
[2017-04-24 02:05] VITALS: BP 162/85
[2017-04-24 03:15] VITALS: BP 140/75
[2017-04-24 05:38] LABS: BASO % 0 % (0-3); EOS % 0 % (0-3); HEMATOCRIT 36.7 % (36.0-47.0); LYMPH # 1.7 x10^3/uL (1.0-4.8); LYMPH % 19 % (24-48); MEAN CORPUSCULAR HEMOGLOBIN 24 pg (25-35); MEAN CORPUSCULAR HGB CONC 33 g/dL (31-37); MEAN CORPUSCULAR VOLUME 74 fL (79-100); MONO % 8 % (0-9); NEUT % 72 % (31-73); PLATELET COUNT 186 x10^3/uL (140-400); RED BLOOD COUNT 4.97 x10^6/uL (3.50-5.40); RED CELL DISTRIBUTION WIDTH 28.5 % (11.5-14.5); WHITE BLOOD COUNT 8.6 x10^3/uL (4.0-11.0)
[2017-04-24 05:54] LABS: % SAT IRON 11 % (15-34); IRON,SERUM 46 ug/dL (50-170)
[2017-04-24 05:58] LABS: CHOLESTEROL/HDL RATIO 2.5
[2017-04-24 06:09] LABS: CALCIUM 9.7 mg/dL (8.5-10.1); CREATININE 1.2 mg/dL (0.6-1.0); GFR 58.5; POTASSIUM 3.8 mmol/L (3.5-5.1)
[2017-04-24 07:30] VITALS: BP 130/93
--- NOTE | 2017-04-24 08:03 | CARD ---
APPROVED REPORT EXAM: Two-dimensional and M-mode echocardiogram with Doppler and color Doppler. Other Information Quality : Good INDICATION Hypertension/HCVD 2D DIMENSIONS RVDd2.5 (2.9-3.5cm)Left Atrium(2D)3.4 (1.6-4.0cm) IVSd1.2 (0.7-1.1cm)Aortic Root(2D)2.5 (2.0-3.7cm) LVDd4.6 (3.9-5.9cm)LVOT Diameter2.0 (1.8-2.4cm) PWd1.1 (0.7-1.1cm)LVDs2.7 (2.5-4.0cm) FS (%) 30.0 %SV73.4 ml LVEF(%)60.0 (>50%) Aortic Valve AoV Peak Deng.198.8cm/sAoV VTI36.1cm AO Peak GR.15.8mmHgLVOT Peak Deng.135.9cm/s LVOT VTI 25.70cmAO Mean GR.8mmHg JOSE (VMAX)2.58mv6OEJ (VTI)2.21cm2 Mitral Valve MV E Smvtdcgd92.7cm/sMV DECEL KGKN518iw MV A Qvnffrft65.7cm/sMV RAD53ls E/A Ratio0.9MVA (PHT)3.44cm2 TDI E/Lateral E'7.8E/Medial E'11.8 Tricuspid Valve TR P. Yuznbyfg763mg/sRAP ETYBPKYQ9hoKv TR Peak Gr.77dvMbFJUY78wpOo Pulmonary Vein S1 Xmscicwd70.1cm/sD2 Tzoacptr78.2cm/s LEFT VENTRICLE The left ventricle is normal size. There is mild concentric left ventricular hypertrophy. The left ve ntricular systolic function is normal. The Ejection Fraction is 60-65%. There is normal LV segmental wall motion. Transmitral Doppler flow pattern is Grade I-abnormal relaxation pattern. RIGHT VENTRICLE The right ventricle is normal size. The right ventricular systolic function is normal. ATRIA The left atrium size is normal. The right atrium size is normal. The interatrial septum is intact wit h no evidence for an atrial septal defect or patent foramen ovale as noted on 2-D or Doppler imaging. AORTIC VALVE The aortic valve is normal in structure and function. Doppler and Color Flow revealed no significant aortic regurgitation. There is no significant aortic valvular stenosis. MITRAL VALVE The mitral valve is normal in structure and function. There is no evidence of mitral valve prolapse. There is no mitral valve stenosis. Doppler and Color-flow revealed trace to mild mitral regurgitation . TRICUSPID VALVE The tricuspid valve is normal in structure and function. Doppler and Color Flow revealed trace tricus pid regurgitation. There is mild pulmonary hypertension. The PA pressure was estimated at 36 mmHg. Th ere is no tricuspid valve stenosis. PULMONIC VALVE The pulmonary valve is normal in structure and function. Doppler and Color Flow revealed trace pulmon ic valvular regurgitation. There is no pulmonic valvular stenosis. GREAT VESSELS The aortic root is normal in size. The ascending aorta is normal in size. The IVC is normal in size a nd collapses >50% with inspiration. PERICARDIAL EFFUSION There is no evidence of significant pericardial effusion. Critical Notification Critical Value: No <Conclusion> The left ventricular systolic function is normal. The Ejection Fraction is 60-65%. There is normal LV segmental wall motion. Transmitral Doppler flow pattern is Grade I-abnormal relaxation pattern. Trace to mild mitral regurgitation. Trace tricuspid regurgitation. The PA pressure was estimated at 36 mmHg. There is no evidence of significant pericardial effusion.
[2017-04-24] MEDS: hydroCHLOROthiazide 25 MG TABLET PO SCH (09:08)
[2017-04-24] MEDS: LABETALOL HCL 200 MG TABLET PO SCH (09:08)
[2017-04-24 10:31] VITALS: BP 138/80
--- NOTE | 2017-04-24 10:38 | PDOC ---
PROGRESS NOTES Subjective Subjective Patient feeling better today. Wants to go home. Objective Objective Vital Signs Date Time Temp Pulse Resp B/P (MAP) Pulse Ox O2 Delivery O2 Flow Rate FiO2 04/24/17 10:31 97.6 76 18 138/80 (99) 96 Room Air 97.6 Intake and Output 04/24/17 07:00 Intake Total 387.5 ml Output Total 0 ml Balance 387.5 ml Intake Oral 300 ml IV Total 87.5 ml Output Urine Total 0 ml # Voids 3 Physical Exam Abdomen: Soft, No tenderness Heart: Regular rate (SR), Normal S1, Normal S2, Other (S4; 2/6 systolic murmur to LLS border) Extremities: No cyanosis, No edema General: Alert, Oriented X3, Cooperative, No acute distress HEENT: Atraumatic, Mucous membr. moist/pink Lungs: Clear to auscultation, Normal air movement MUSCULOSKELETAL: Full range of motion without pain Neuro: Normal speech, Sensation intact Psych/Mental Status: Mental status NL, Mood NL Skin: No breakdown, No significant lesion Assessment Assessment 1. Accelerated hypertension: Much better controlled. Presently off Cardene drip. 2-D echo showed normal LV function without any wall motion abnormalities. Continue current medical regimen. 2. Hypokalemia: Replaced Okay for discharge from our standpoint. Follow-up with our office in one month. Plan Plan of Care Problems Medical Problems: (1) Accelerated hypertension Status: Acute Comment Review of Relevant I have reviewed the following items pablo (where applicable) has been applied. Labs Laboratory Tests Test 04/23/17 13:06 04/23/17 13:50 04/23/17 14:15 04/24/17 05:00 Bedside Urine HCG, Qualitative Hcg negative (Negative) Urine Collection Type Unknown Urine Color Yellow Urine Clarity Clear Urine pH 7.0 Urine Specific [place] 1.015 Urine Protein Negative mg/dL (NEG-TRACE) Urine Glucose (UA) Negative mg/dL (NEG) Urine Ketones (Stick) Negative mg/dL (NEG) Urine Blood Negative (NEG) Urine Nitrite Negative (NEG) Urine Bilirubin Negative (NEG) Urine Urobilinogen Dipstick 0.2 mg/dL (0.2 mg/dL) Urine Leukocyte Esterase Negative (NEG) Urine RBC 1-2 /HPF (0-2) Urine WBC 0 /HPF (0-4) Urine Squamous Epithelial Cells Few /LPF Urine Bacteria 0 /HPF (0-FEW) Urine Mucus Slight /LPF Urine Opiates Screen Neg (NEG) Urine Methadone Screen Neg (NEG) Urine Barbiturates Neg (NEG) Urine Phencyclidine Screen Neg (NEG) Urine Amphetamine/Methamphetamine Neg (NEG) Urine Benzodiazepines Screen Neg (NEG) Urine Cocaine Screen Neg (NEG) Urine Cannabinoids Screen Neg (NEG) Urine Ethyl Alcohol Neg (NEG) White Blood Count 7.7 x10^3/uL (4.0-11.0) 8.6 x10^3/uL (4.0-11.0) Red Blood Count 4.80 x10^6/uL (3.50-5.40) 4.97 x10^6/uL (3.50-5.40) Hemoglobin 11.3 g/dL (12.0-15.5) 12.0 g/dL (12.0-15.5) Hematocrit 36.3 % (36.0-47.0) 36.7 % (36.0-47.0) Mean Corpuscular Volume 76 fL (79-100) 74 fL (79-100) Mean Corpuscular Hemoglobin 24 pg (25-35) 24 pg (25-35) Mean Corpuscular Hemoglobin Concent 31 g/dL (31-37) 33 g/dL (31-37) Red Cell Distribution Width 28.4 % (11.5-14.5) 28.5 % (11.5-14.5) Platelet Count 193 x10^3/uL (140-400) 186 x10^3/uL (140-400) Neutrophils (%) (Auto) 63 % (31-73) 72 % (31-73) Lymphocytes (%) (Auto) 30 % (24-48) 19 % (24-48) Monocytes (%) (Auto) 7 % (0-9) 8 % (0-9) Eosinophils (%) (Auto) 1 % (0-3) 0 % (0-3) Basophils (%) (Auto) 1 % (0-3) 0 % (0-3) Neutrophils # (Auto) 4.8 x10^3uL (1.8-7.7) 6.2 x10^3uL (1.8-7.7) Lymphocytes # (Auto) 2.3 x10^3/uL (1.0-4.8) 1.7 x10^3/uL (1.0-4.8) Monocytes # (Auto) 0.5 x10^3/uL (0.0-1.1) 0.7 x10^3/uL (0.0-1.1) Eosinophils # (Auto) 0.0 x10^3/uL (0.0-0.7) 0.0 x10^3/uL (0.0-0.7) Basophils # (Auto) 0.0 x10^3/uL (0.0-0.2) 0.0 x10^3/uL (0.0-0.2) Platelet Estimate Adequate (ADEQUATE) Large Platelets Occ Giant Platelets Occ Hypochromasia Slight Poikilocytosis Slight Anisocytosis Marked Sodium Level 140 mmol/L (136-145) 141 mmol/L (136-145) Potassium Level 3.4 mmol/L (3.5-5.1) 3.8 mmol/L (3.5-5.1) Chloride Level 103 mmol/L (98-107) 102 mmol/L (98-107) Carbon Dioxide Level 29 mmol/L (21-32) 26 mmol/L (21-32) Anion Gap 8 (6-14) 13 (6-14) Blood Urea Nitrogen 12 mg/dL (7-20) 14 mg/dL (7-20) Creatinine 1.0 mg/dL (0.6-1.0) 1.2 mg/dL (0.6-1.0) Estimated GFR (Cockcroft-Gault) 72.2 58.5 BUN/Creatinine Ratio 12 (6-20) Glucose Level 103 mg/dL (70-99) 189 mg/dL (70-99) Calcium Level 9.5 mg/dL (8.5-10.1) 9.7 mg/dL (8.5-10.1) Total Bilirubin 0.4 mg/dL (0.2-1.0) Aspartate Amino Transf (AST/SGOT) 18 U/L (15-37) Alanine Aminotransferase (ALT/SGPT) 26 U/L (14-59) Alkaline Phosphatase 90 U/L (46-116) Creatine Kinase 124 U/L (26-192) Creatine Kinase MB (Mass) 0.6 ng/mL (0.0-3.6) Creatine Kinase MB Relative Index 0.5 % (0-4) Total Protein 8.2 g/dL (6.4-8.2) Albumin 3.7 g/dL (3.4-5.0) Albumin/Globulin Ratio 0.8 (1.0-1.7) Thyroid Stimulating Hormone (TSH) 2.547 uIU/mL (0.358-3.74) Iron Level 46 ug/dL (50-170) Total Iron Binding Capacity 429 ug/dL (250-450) Iron Saturation 11 % (15-34) Ferritin 14 ng/mL (8-252) Triglycerides Level 38 mg/dL (0-150) Cholesterol Level 241 mg/dL (0-200) LDL Cholesterol, Calculated 137 mg/dL (0-100) VLDL Cholesterol, Calculated 8 mg/dL (0-40) Non-HDL Cholesterol Calculated 145 mg/dL (0-129) HDL Cholesterol 96 mg/dL (40-60) Cholesterol/HDL Ratio 2.5 Medications Current Medications Acetaminophen (Tylenol) 650 mg PRN Q4HRS PRN PO FEVER Last administered on 04/23 18:18; Start 04/23/17 at 15:00; Stop 04/24/17 at 14:59 Acetaminophen (Tylenol) 650 mg PRN Q6HRS PRN PO FEVER; Start 04/23/17 at 15:45 Albuterol Sulfate (Ventolin Neb Soln) 2.5 mg PRN Q4HRS PRN NEB SHORTNESS OF BREATH; Start 04/23/17 at 15:45 Docusate Sodium (Colace) 100 mg PRN DAILY PRN PO CONSTIPATION; Start 04/23/17 at 15:45 Enoxaparin Sodium (Lovenox 40mg Syringe) 40 mg Q24H SQ ; Start 04/23/17 at 16:00 Fentanyl Citrate (Fentanyl 2ml Vial) 50 mcg PRN Q2HR PRN IV PAIN; Start at 15:00; Stop 04/24/17 at 14:59 Hydralazine HCl (Apresoline) 10 mg 1X ONCE IVP Last administered on 04/23/17t 13:51; Start 04/23/17 at 13:30; Stop 04/23/17 at 13:31; Status DC Hydralazine HCl (Apresoline) 10 mg PRN Q4HRS PRN IVP ELEVATED BP, SEE COMMENTS ; Start 04/23/17 at 15:45 Hydrochlorothiazide (Hydrodiuril) 25 mg DAILY PO Last administered on 09:08; Start 04/23/17 at 16:00 Labetalol HCl (Normodyne) 20 mg PRN Q2HR PRN IVP HYPERTENSION, SEE COMMENTS; Start 04/23/17 at 15:30 Labetalol HCl (Trandate) 200 mg BID PO Last administered on 04/24/17 09:08; Start 04/23/17 at 21:00 Metoclopramide HCl (Reglan) 10 mg PRN Q6HRS PRN IV NAUSEA/VOMITING 2ND CHOICE Last administered on 04/23/17 21:18; Start 04/23/17 at 21:00 Morphine Sulfate 2 mg PRN Q2HR PRN IV PAIN; Start 04/23/17 at 15:45 Nicardipine HCl 50 mg/Sodium Chloride 270 ml @ 0 mls/hr CONT PRN IV SEE I/O RECORD Last administered on 04/23/17 14:48; Start 04/23/17 at 14:30 Ondansetron HCl (Zofran) 4 mg PRN Q6HRS PRN IV NAUSEA/VOMITING 1ST CHOICE Last administered on 04/23/17 19:27; Start 04/23/17 at 15:45 Ondansetron HCl (Zofran) 4 mg PRN Q8HRS PRN IV NAUSEA/VOMITING; Start 04/23/17 at 15:00; Stop 04/24/17 at 14:59 Potassium Chloride (Klor-Con) 20 meq 1X ONCE PO Last administered on 18:18; Start 04/23/17 at 16:00; Stop 04/23/17 at 16:01; Status DC Potassium Chloride (Klor-Con) 20 meq 1X ONCE PO ; Start 04/23/17 at 16:00; Stop 04/23/17 at 16:01; Status Cancel Sodium Chloride 1,000 ml @ 100 mls/hr Q10H IV Last administered on 04/23/17 13:50; Start 04/23/17 at 13:16; Stop 04/23/17 at 18:58; Status DC Sodium Chloride 1,000 ml @ 100 mls/hr Q10H IV ; Start 04/23/17 at 14:58; Stop 04/23/17 at 18:58; Status DC Tramadol HCl (Ultram) 50 mg PRN Q6HRS PRN PO PAIN; Start 04/23/17 at 15:45 Vitals/I & O Vital Sign - Last 24 Hours 04/23/17 04/23/17 04/23/17 04/23/17 12:49 13:05 13:20 13:39 Temp 98.3 98.3 Pulse 63 65 62 64 Resp 20 15 26 18 B/P (MAP) 233/116 (155) 208/90 (129) 230/96 (140) 224/108 (146) Pulse Ox 100 100 100 100 O2 Delivery Room Air Room Air Room Air Room Air 04/23/17 04/23/17 04/23/17 04/23/17 13:50 13:51 14:05 14:27 Pulse 65 68 67 74 Resp 22 22 14 B/P (MAP) 210/105 (140) 224/108 190/87 (121) 209/96 (133) Pulse Ox 89 100 100 O2 Delivery Room Air Room Air Room Air 04/23/17 04/23/17 04/23/17 04/23/17 14:35 14:46 14:54 15:40 Pulse 69 75 83 88 Resp 19 17 24 19 B/P (MAP) 192/94 (126) 169/97 (121) 169/97 (121) 159/83 (108) Pulse Ox 100 100 100 100 O2 Delivery Room Air Room Air Room Air Room Air 04/23/17 04/23/17 04/23/17 04/23/17 15:45 15:50 16:22 16:27 Pulse 94 92 81 78 Resp 19 20 16 14 B/P (MAP) 166/84 (111) 191/101 (131) 153/75 (101) 159/68 (98) Pulse Ox 100 99 98 100 O2 Delivery Room Air Room Air Room Air Room Air 04/23/17 04/23/17 04/23/17 04/23/17 16:56 17:08 19:15 20:00 Temp 98.3 97.7 98.3 97.7 Pulse 84 70 Resp 18 24 B/P (MAP) 153/80 (104) 156/103 (120) Pulse Ox 95 98 O2 Delivery Room Air Room Air Room Air Room Air 04/23/17 04/23/17 04/23/17 04/23/17 20:05 20:21 21:05 22:05 Pulse 77 74 78 B/P (MAP) 152/82 (105) 158/78 (104) 166/85 (112) Pulse Ox 97 O2 Delivery Room Air 04/23/17 04/23/17 04/23/17 04/24/17 22:06 23:05 23:34 00:05 Temp 97.7 97.7 Pulse 82 63 68 67 Resp 17 B/P (MAP) 166/85 128/65 (86) 166/85 (112) 148/89 (108) Pulse Ox 98 O2 Delivery Room Air 04/24/17 04/24/17 04/24/17 04/24/17 01:05 02:05 03:15 07:30 Temp 97.9 98.1 97.9 98.1 Pulse 61 66 73 75 Resp 18 18 B/P (MAP) 152/85 (107) 162/85 (110) 140/75 (96) 130/93 (105) Pulse Ox 98 97 O2 Delivery Room Air Room Air 04/24/17 04/24/17 04/24/17 08:10 09:08 10:31 Temp 97.6 97.6 Pulse 72 76 Resp 18 B/P (MAP) 130/93 138/80 (99) Pulse Ox 96 O2 Delivery Room Air Room Air Intake and Output 04/23/17 04/23/17 04/24/17 15:00 23:00 07:00 Intake Total 100 ml 287.5 ml Output Total 0 ml Balance 100 ml 287.5 ml DONALD SAHU MD April 24, 2017 10:38
--- NOTE | 2017-04-24 12:27 | PDOC ---
PROGRESS NOTES Chief Complaint Chief Complaint Accelerated Hypertension Diabetes Asthma H/o seizure Herpes simplex 2 H/o Cocaine use History of Present Illness History of Present Illness Patient lying in bed in NAD this am States she would like to go home Discussed care with nurse Vitals Vitals Vital Signs Date Time Temp Pulse Resp B/P (MAP) Pulse Ox O2 Delivery O2 Flow Rate FiO2 04/24/17 10:31 97.6 76 18 138/80 (99) 96 Room Air 97.6 Physical Exam General: Alert, Oriented X3, Cooperative, No acute distress Heart: Regular rate (SR), Normal S1, Normal S2, Other (S4; 2/6 systolic murmur to LLS border) Lungs: Clear, Other (no wheezing) Abdomen: Soft, No tenderness Extremities: No cyanosis, No edema Skin: No breakdown, No significant lesion Labs LABS Laboratory Tests Test 04/23/17 13:06 04/23/17 13:50 04/23/17 14:15 04/24/17 05:00 Bedside Urine HCG, Qualitative Hcg negative (Negative) Urine Collection Type Unknown Urine Color Yellow Urine Clarity Clear Urine pH 7.0 Urine Specific [place] 1.015 Urine Protein Negative mg/dL (NEG-TRACE) Urine Glucose (UA) Negative mg/dL (NEG) Urine Ketones (Stick) Negative mg/dL (NEG) Urine Blood Negative (NEG) Urine Nitrite Negative (NEG) Urine Bilirubin Negative (NEG) Urine Urobilinogen Dipstick 0.2 mg/dL (0.2 mg/dL) Urine Leukocyte Esterase Negative (NEG) Urine RBC 1-2 /HPF (0-2) Urine WBC 0 /HPF (0-4) Urine Squamous Epithelial Cells Few /LPF Urine Bacteria 0 /HPF (0-FEW) Urine Mucus Slight /LPF Urine Opiates Screen Neg (NEG) Urine Methadone Screen Neg (NEG) Urine Barbiturates Neg (NEG) Urine Phencyclidine Screen Neg (NEG) Urine Amphetamine/Methamphetamine Neg (NEG) Urine Benzodiazepines Screen Neg (NEG) Urine Cocaine Screen Neg (NEG) Urine Cannabinoids Screen Neg (NEG) Urine Ethyl Alcohol Neg (NEG) White Blood Count 7.7 x10^3/uL (4.0-11.0) 8.6 x10^3/uL (4.0-11.0) Red Blood Count 4.80 x10^6/uL (3.50-5.40) 4.97 x10^6/uL (3.50-5.40) Hemoglobin 11.3 g/dL (12.0-15.5) 12.0 g/dL (12.0-15.5) Hematocrit 36.3 % (36.0-47.0) 36.7 % (36.0-47.0) Mean Corpuscular Volume 76 fL (79-100) 74 fL (79-100) Mean Corpuscular Hemoglobin 24 pg (25-35) 24 pg (25-35) Mean Corpuscular Hemoglobin Concent 31 g/dL (31-37) 33 g/dL (31-37) Red Cell Distribution Width 28.4 % (11.5-14.5) 28.5 % (11.5-14.5) Platelet Count 193 x10^3/uL (140-400) 186 x10^3/uL (140-400) Neutrophils (%) (Auto) 63 % (31-73) 72 % (31-73) Lymphocytes (%) (Auto) 30 % (24-48) 19 % (24-48) Monocytes (%) (Auto) 7 % (0-9) 8 % (0-9) Eosinophils (%) (Auto) 1 % (0-3) 0 % (0-3) Basophils (%) (Auto) 1 % (0-3) 0 % (0-3) Neutrophils # (Auto) 4.8 x10^3uL (1.8-7.7) 6.2 x10^3uL (1.8-7.7) Lymphocytes # (Auto) 2.3 x10^3/uL (1.0-4.8) 1.7 x10^3/uL (1.0-4.8) Monocytes # (Auto) 0.5 x10^3/uL (0.0-1.1) 0.7 x10^3/uL (0.0-1.1) Eosinophils # (Auto) 0.0 x10^3/uL (0.0-0.7) 0.0 x10^3/uL (0.0-0.7) Basophils # (Auto) 0.0 x10^3/uL (0.0-0.2) 0.0 x10^3/uL (0.0-0.2) Platelet Estimate Adequate (ADEQUATE) Large Platelets Occ Giant Platelets Occ Hypochromasia Slight Poikilocytosis Slight Anisocytosis Marked Sodium Level 140 mmol/L (136-145) 141 mmol/L (136-145) Potassium Level 3.4 mmol/L (3.5-5.1) 3.8 mmol/L (3.5-5.1) Chloride Level 103 mmol/L (98-107) 102 mmol/L (98-107) Carbon Dioxide Level 29 mmol/L (21-32) 26 mmol/L (21-32) Anion Gap 8 (6-14) 13 (6-14) Blood Urea Nitrogen 12 mg/dL (7-20) 14 mg/dL (7-20) Creatinine 1.0 mg/dL (0.6-1.0) 1.2 mg/dL (0.6-1.0) Estimated GFR (Cockcroft-Gault) 72.2 58.5 BUN/Creatinine Ratio 12 (6-20) Glucose Level 103 mg/dL (70-99) 189 mg/dL (70-99) Calcium Level 9.5 mg/dL (8.5-10.1) 9.7 mg/dL (8.5-10.1) Total Bilirubin 0.4 mg/dL (0.2-1.0) Aspartate Amino Transf (AST/SGOT) 18 U/L (15-37) Alanine Aminotransferase (ALT/SGPT) 26 U/L (14-59) Alkaline Phosphatase 90 U/L (46-116) Creatine Kinase 124 U/L (26-192) Creatine Kinase MB (Mass) 0.6 ng/mL (0.0-3.6) Creatine Kinase MB Relative Index 0.5 % (0-4) Total Protein 8.2 g/dL (6.4-8.2) Albumin 3.7 g/dL (3.4-5.0) Albumin/Globulin Ratio 0.8 (1.0-1.7) Thyroid Stimulating Hormone (TSH) 2.547 uIU/mL (0.358-3.74) Iron Level 46 ug/dL (50-170) Total Iron Binding Capacity 429 ug/dL (250-450) Iron Saturation 11 % (15-34) Ferritin 14 ng/mL (8-252) Triglycerides Level 38 mg/dL (0-150) Cholesterol Level 241 mg/dL (0-200) LDL Cholesterol, Calculated 137 mg/dL (0-100) VLDL Cholesterol, Calculated 8 mg/dL (0-40) Non-HDL Cholesterol Calculated 145 mg/dL (0-129) HDL Cholesterol 96 mg/dL (40-60) Cholesterol/HDL Ratio 2.5 Review of Systems Review of Systems General: denies weakness GI: denies N/V/D/C Assessment and Plan Assessmemt and Plan Problems Medical Problems: (1) Accelerated hypertension Status: Acute Accelerated Hypertension Diabetes Asthma H/o seizure Herpes simplex 2 H/o Cocaine use Plan: -Discharge ok today -D/C with Metoprolol 25mg BID -D/C with Lasix 40mg QAM -D/C with KCl 20mEq QD -Follow up with cardio in 1 month -Follow up with PCP in 1 week -Subspecialist input appreciated Problems: Comment Review of Relevant I have reviewed the following items pablo (where applicable) has been applied. Labs Laboratory Tests Test 04/23/17 13:06 04/23/17 13:50 04/23/17 14:15 04/24/17 05:00 Bedside Urine HCG, Qualitative Hcg negative (Negative) Urine Collection Type Unknown Urine Color Yellow Urine Clarity Clear Urine pH 7.0 Urine Specific [place] 1.015 Urine Protein Negative mg/dL (NEG-TRACE) Urine Glucose (UA) Negative mg/dL (NEG) Urine Ketones (Stick) Negative mg/dL (NEG) Urine Blood Negative (NEG) Urine Nitrite Negative (NEG) Urine Bilirubin Negative (NEG) Urine Urobilinogen Dipstick 0.2 mg/dL (0.2 mg/dL) Urine Leukocyte Esterase Negative (NEG) Urine RBC 1-2 /HPF (0-2) Urine WBC 0 /HPF (0-4) Urine Squamous Epithelial Cells Few /LPF Urine Bacteria 0 /HPF (0-FEW) Urine Mucus Slight /LPF Urine Opiates Screen Neg (NEG) Urine Methadone Screen Neg (NEG) Urine Barbiturates Neg (NEG) Urine Phencyclidine Screen Neg (NEG) Urine Amphetamine/Methamphetamine Neg (NEG) Urine Benzodiazepines Screen Neg (NEG) Urine Cocaine Screen Neg (NEG) Urine Cannabinoids Screen Neg (NEG) Urine Ethyl Alcohol Neg (NEG) White Blood Count 7.7 x10^3/uL (4.0-11.0) 8.6 x10^3/uL (4.0-11.0) Red Blood Count 4.80 x10^6/uL (3.50-5.40) 4.97 x10^6/uL (3.50-5.40) Hemoglobin 11.3 g/dL (12.0-15.5) 12.0 g/dL (12.0-15.5) Hematocrit 36.3 % (36.0-47.0) 36.7 % (36.0-47.0) Mean Corpuscular Volume 76 fL (79-100) 74 fL (79-100) Mean Corpuscular Hemoglobin 24 pg (25-35) 24 pg (25-35) Mean Corpuscular Hemoglobin Concent 31 g/dL (31-37) 33 g/dL (31-37) Red Cell Distribution Width 28.4 % (11.5-14.5) 28.5 % (11.5-14.5) Platelet Count 193 x10^3/uL (140-400) 186 x10^3/uL (140-400) Neutrophils (%) (Auto) 63 % (31-73) 72 % (31-73) Lymphocytes (%) (Auto) 30 % (24-48) 19 % (24-48) Monocytes (%) (Auto) 7 % (0-9) 8 % (0-9) Eosinophils (%) (Auto) 1 % (0-3) 0 % (0-3) Basophils (%) (Auto) 1 % (0-3) 0 % (0-3) Neutrophils # (Auto) 4.8 x10^3uL (1.8-7.7) 6.2 x10^3uL (1.8-7.7) Lymphocytes # (Auto) 2.3 x10^3/uL (1.0-4.8) 1.7 x10^3/uL (1.0-4.8) Monocytes # (Auto) 0.5 x10^3/uL (0.0-1.1) 0.7 x10^3/uL (0.0-1.1) Eosinophils # (Auto) 0.0 x10^3/uL (0.0-0.7) 0.0 x10^3/uL (0.0-0.7) Basophils # (Auto) 0.0 x10^3/uL (0.0-0.2) 0.0 x10^3/uL (0.0-0.2) Platelet Estimate Adequate (ADEQUATE) Large Platelets Occ Giant Platelets Occ Hypochromasia Slight Poikilocytosis Slight Anisocytosis Marked Sodium Level 140 mmol/L (136-145) 141 mmol/L (136-145) Potassium Level 3.4 mmol/L (3.5-5.1) 3.8 mmol/L (3.5-5.1) Chloride Level 103 mmol/L (98-107) 102 mmol/L (98-107) Carbon Dioxide Level 29 mmol/L (21-32) 26 mmol/L (21-32) Anion Gap 8 (6-14) 13 (6-14) Blood Urea Nitrogen 12 mg/dL (7-20) 14 mg/dL (7-20) Creatinine 1.0 mg/dL (0.6-1.0) 1.2 mg/dL (0.6-1.0) Estimated GFR (Cockcroft-Gault) 72.2 58.5 BUN/Creatinine Ratio 12 (6-20) Glucose Level 103 mg/dL (70-99) 189 mg/dL (70-99) Calcium Level 9.5 mg/dL (8.5-10.1) 9.7 mg/dL (8.5-10.1) Total Bilirubin 0.4 mg/dL (0.2-1.0) Aspartate Amino Transf (AST/SGOT) 18 U/L (15-37) Alanine Aminotransferase (ALT/SGPT) 26 U/L (14-59) Alkaline Phosphatase 90 U/L (46-116) Creatine Kinase 124 U/L (26-192) Creatine Kinase MB (Mass) 0.6 ng/mL (0.0-3.6) Creatine Kinase MB Relative Index 0.5 % (0-4) Total Protein 8.2 g/dL (6.4-8.2) Albumin 3.7 g/dL (3.4-5.0) Albumin/Globulin Ratio 0.8 (1.0-1.7) Thyroid Stimulating Hormone (TSH) 2.547 uIU/mL (0.358-3.74) Iron Level 46 ug/dL (50-170) Total Iron Binding Capacity 429 ug/dL (250-450) Iron Saturation 11 % (15-34) Ferritin 14 ng/mL (8-252) Triglycerides Level 38 mg/dL (0-150) Cholesterol Level 241 mg/dL (0-200) LDL Cholesterol, Calculated 137 mg/dL (0-100) VLDL Cholesterol, Calculated 8 mg/dL (0-40) Non-HDL Cholesterol Calculated 145 mg/dL (0-129) HDL Cholesterol 96 mg/dL (40-60) Cholesterol/HDL Ratio 2.5 Laboratory Tests Test 04/23/17 13:06 04/23/17 13:50 04/23/17 14:15 04/24/17 05:00 Bedside Urine HCG, Qualitative Hcg negative (Negative) Urine Collection Type Unknown Urine Color Yellow Urine Clarity Clear Urine pH 7.0 Urine Specific [place] 1.015 Urine Protein Negative mg/dL (NEG-TRACE) Urine Glucose (UA) Negative mg/dL (NEG) Urine Ketones (Stick) Negative mg/dL (NEG) Urine Blood Negative (NEG) Urine Nitrite Negative (NEG) Urine Bilirubin Negative (NEG) Urine Urobilinogen Dipstick 0.2 mg/dL (0.2 mg/dL) Urine Leukocyte Esterase Negative (NEG) Urine RBC 1-2 /HPF (0-2) Urine WBC 0 /HPF (0-4) Urine Squamous Epithelial Cells Few /LPF Urine Bacteria 0 /HPF (0-FEW) Urine Mucus Slight /LPF Urine Opiates Screen Neg (NEG) Urine Methadone Screen Neg (NEG) Urine Barbiturates Neg (NEG) Urine Phencyclidine Screen Neg (NEG) Urine Amphetamine/Methamphetamine Neg (NEG) Urine Benzodiazepines Screen Neg (NEG) Urine Cocaine Screen Neg (NEG) Urine Cannabinoids Screen Neg (NEG) Urine Ethyl Alcohol Neg (NEG) White Blood Count 7.7 x10^3/uL (4.0-11.0) 8.6 x10^3/uL (4.0-11.0) Red Blood Count 4.80 x10^6/uL (3.50-5.40) 4.97 x10^6/uL (3.50-5.40) Hemoglobin 11.3 g/dL (12.0-15.5) 12.0 g/dL (12.0-15.5) Hematocrit 36.3 % (36.0-47.0) 36.7 % (36.0-47.0) Mean Corpuscular Volume 76 fL (79-100) 74 fL (79-100) Mean Corpuscular Hemoglobin 24 pg (25-35) 24 pg (25-35) Mean Corpuscular Hemoglobin Concent 31 g/dL (31-37) 33 g/dL (31-37) Red Cell Distribution Width 28.4 % (11.5-14.5) 28.5 % (11.5-14.5) Platelet Count 193 x10^3/uL (140-400) 186 x10^3/uL (140-400) Neutrophils (%) (Auto) 63 % (31-73) 72 % (31-73) Lymphocytes (%) (Auto) 30 % (24-48) 19 % (24-48) Monocytes (%) (Auto) 7 % (0-9) 8 % (0-9) Eosinophils (%) (Auto) 1 % (0-3) 0 % (0-3) Basophils (%) (Auto) 1 % (0-3) 0 % (0-3) Neutrophils # (Auto) 4.8 x10^3uL (1.8-7.7) 6.2 x10^3uL (1.8-7.7) Lymphocytes # (Auto) 2.3 x10^3/uL (1.0-4.8) 1.7 x10^3/uL (1.0-4.8) Monocytes # (Auto) 0.5 x10^3/uL (0.0-1.1) 0.7 x10^3/uL (0.0-1.1) Eosinophils # (Auto) 0.0 x10^3/uL (0.0-0.7) 0.0 x10^3/uL (0.0-0.7) Basophils # (Auto) 0.0 x10^3/uL (0.0-0.2) 0.0 x10^3/uL (0.0-0.2) Platelet Estimate Adequate (ADEQUATE) Large Platelets Occ Giant Platelets Occ Hypochromasia Slight Poikilocytosis Slight Anisocytosis Marked Sodium Level 140 mmol/L (136-145) 141 mmol/L (136-145) Potassium Level 3.4 mmol/L (3.5-5.1) 3.8 mmol/L (3.5-5.1) Chloride Level 103 mmol/L (98-107) 102 mmol/L (98-107) Carbon Dioxide Level 29 mmol/L (21-32) 26 mmol/L (21-32) Anion Gap 8 (6-14) 13 (6-14) Blood Urea Nitrogen 12 mg/dL (7-20) 14 mg/dL (7-20) Creatinine 1.0 mg/dL (0.6-1.0) 1.2 mg/dL (0.6-1.0) Estimated GFR (Cockcroft-Gault) 72.2 58.5 BUN/Creatinine Ratio 12 (6-20) Glucose Level 103 mg/dL (70-99) 189 mg/dL (70-99) Calcium Level 9.5 mg/dL (8.5-10.1) 9.7 mg/dL (8.5-10.1) Total Bilirubin 0.4 mg/dL (0.2-1.0) Aspartate Amino Transf (AST/SGOT) 18 U/L (15-37) Alanine Aminotransferase (ALT/SGPT) 26 U/L (14-59) Alkaline Phosphatase 90 U/L (46-116) Creatine Kinase 124 U/L (26-192) Creatine Kinase MB (Mass) 0.6 ng/mL (0.0-3.6) Creatine Kinase MB Relative Index 0.5 % (0-4) Total Protein 8.2 g/dL (6.4-8.2) Albumin 3.7 g/dL (3.4-5.0) Albumin/Globulin Ratio 0.8 (1.0-1.7) Thyroid Stimulating Hormone (TSH) 2.547 uIU/mL (0.358-3.74) Iron Level 46 ug/dL (50-170) Total Iron Binding Capacity 429 ug/dL (250-450) Iron Saturation 11 % (15-34) Ferritin 14 ng/mL (8-252) Triglycerides Level 38 mg/dL (0-150) Cholesterol Level 241 mg/dL (0-200) LDL Cholesterol, Calculated 137 mg/dL (0-100) VLDL Cholesterol, Calculated 8 mg/dL (0-40) Non-HDL Cholesterol Calculated 145 mg/dL (0-129) HDL Cholesterol 96 mg/dL (40-60) Cholesterol/HDL Ratio 2.5 Medications Current Medications Sodium Chloride 1,000 ml @ 100 mls/hr Q10H IV Last administered on 04/23/17 13:50; Start 04/23/17 at 13:16; Stop 04/23/17 at 18:58; Status DC Hydralazine HCl (Apresoline) 10 mg 1X ONCE IVP Last administered on 04/23/17 13:51; Start 04/23/17 at 13:30; Stop 04/23/17 at 13:31; Status DC Nicardipine HCl 50 mg/Sodium Chloride 270 ml @ 0 mls/hr CONT PRN IV SEE I/O RECORD Last administered on 04/23/17 14:48; Start 04/23/17 at 14:30 Ondansetron HCl (Zofran) 4 mg PRN Q8HRS PRN IV NAUSEA/VOMITING; Start 04/23/17 at 15:00; Stop 04/24/17 at 14:59 Fentanyl Citrate (Fentanyl 2ml Vial) 50 mcg PRN Q2HR PRN IV PAIN; Start at 15:00; Stop 04/24/17 at 14:59 Sodium Chloride 1,000 ml @ 100 mls/hr Q10H IV ; Start 04/23/17 at 14:58; Stop 04/23/17 at 18:58; Status DC Acetaminophen (Tylenol) 650 mg PRN Q4HRS PRN PO FEVER Last administered on 04/23 18:18; Start 04/23/17 at 15:00; Stop 04/24/17 at 14:59 Potassium Chloride (Klor-Con) 20 meq 1X ONCE PO ; Start 04/23/17 at 16:00; Stop 04/23/17 at 16:01; Status Cancel Labetalol HCl (Trandate) 200 mg BID PO Last administered on 04/24/17 09:08; Start 04/23/17 at 21:00 Hydrochlorothiazide (Hydrodiuril) 25 mg DAILY PO Last administered on 09:08; Start 04/23/17 at 16:00 Labetalol HCl (Normodyne) 20 mg PRN Q2HR PRN IVP HYPERTENSION, SEE COMMENTS; Start 04/23/17 at 15:30 Acetaminophen (Tylenol) 650 mg PRN Q6HRS PRN PO FEVER; Start 04/23/17 at 15:45 Ondansetron HCl (Zofran) 4 mg PRN Q6HRS PRN IV NAUSEA/VOMITING 1ST CHOICE Last administered on 04/23/17 19:27; Start 04/23/17 at 15:45 Morphine Sulfate 2 mg PRN Q2HR PRN IV PAIN; Start 04/23/17 at 15:45 Tramadol HCl (Ultram) 50 mg PRN Q6HRS PRN PO PAIN; Start 04/23/17 at 15:45 Hydralazine HCl (Apresoline) 10 mg PRN Q4HRS PRN IVP ELEVATED BP, SEE COMMENTS ; Start 04/23/17 at 15:45 Docusate Sodium (Colace) 100 mg PRN DAILY PRN PO CONSTIPATION; Start 04/23/17 at 15:45 Enoxaparin Sodium (Lovenox 40mg Syringe) 40 mg Q24H SQ ; Start 04/23/17 at 16:00 Albuterol Sulfate (Ventolin Neb Soln) 2.5 mg PRN Q4HRS PRN NEB SHORTNESS OF BREATH; Start 04/23/17 at 15:45 Potassium Chloride (Klor-Con) 20 meq 1X ONCE PO Last administered on 18:18; Start 04/23/17 at 16:00; Stop 04/23/17 at 16:01; Status DC Metoclopramide HCl (Reglan) 10 mg PRN Q6HRS PRN IV NAUSEA/VOMITING 2ND CHOICE Last administered on 04/23/17 21:18; Start 04/23/17 at 21:00 Active Scripts Active Permethrin 60 Gm Cream..g. 60 Gm TP 1X Apply head to toe leave on for 8-12 hours and wash off. May repeat in 7 days. Vistaril (Hydroxyzine Pamoate) 25 Mg Capsule 1 Cap PO TID Bedding [place] (Permethrin) 142 Gm [place] 142 Gm MC 1X Permethrin 59 Ml Liquid 60 Ml TP 1X Vitals/I & O Vital Sign - Last 24 Hours 04/23/17 04/23/17 04/23/17 04/23/17 12:49 13:05 13:20 13:39 Temp 98.3 98.3 Pulse 63 65 62 64 Resp 20 15 26 18 B/P (MAP) 233/116 (155) 208/90 (129) 230/96 (140) 224/108 (146) Pulse Ox 100 100 100 100 O2 Delivery Room Air Room Air Room Air Room Air 04/23/17 04/23/17 04/23/17 04/23/17 13:50 13:51 14:05 14:27 Pulse 65 68 67 74 Resp 22 22 14 B/P (MAP) 210/105 (140) 224/108 190/87 (121) 209/96 (133) Pulse Ox 89 100 100 O2 Delivery Room Air Room Air Room Air 04/23/17 04/23/17 04/23/17 04/23/17 14:35 14:46 14:54 15:40 Pulse 69 75 83 88 Resp 19 17 24 19 B/P (MAP) 192/94 (126) 169/97 (121) 169/97 (121) 159/83 (108) Pulse Ox 100 100 100 100 O2 Delivery Room Air Room Air Room Air Room Air 04/23/17 04/23/17 04/23/17 04/23/17 15:45 15:50 16:22 16:27 Pulse 94 92 81 78 Resp 19 20 16 14 B/P (MAP) 166/84 (111) 191/101 (131) 153/75 (101) 159/68 (98) Pulse Ox 100 99 98 100 O2 Delivery Room Air Room Air Room Air Room Air 04/23/17 04/23/17 04/23/17 04/23/17 16:56 17:08 19:15 20:00 Temp 98.3 97.7 98.3 97.7 Pulse 84 70 Resp 18 24 B/P (MAP) 153/80 (104) 156/103 (120) Pulse Ox 95 98 O2 Delivery Room Air Room Air Room Air Room Air 04/23/17 04/23/17 04/23/17 04/23/17 20:05 20:21 21:05 22:05 Pulse 77 74 78 B/P (MAP) 152/82 (105) 158/78 (104) 166/85 (112) Pulse Ox 97 O2 Delivery Room Air 04/23/17 04/23/17 04/23/17 04/24/17 22:06 23:05 23:34 00:05 Temp 97.7 97.7 Pulse 82 63 68 67 Resp 17 B/P (MAP) 166/85 128/65 (86) 166/85 (112) 148/89 (108) Pulse Ox 98 O2 Delivery Room Air 04/24/17 04/24/17 04/24/17 04/24/17 01:05 02:05 03:15 07:30 Temp 97.9 98.1 97.9 98.1 Pulse 61 66 73 75 Resp 18 18 B/P (MAP) 152/85 (107) 162/85 (110) 140/75 (96) 130/93 (105) Pulse Ox 98 97 O2 Delivery Room Air Room Air 04/24/17 04/24/17 04/24/17 08:10 09:08 10:31 Temp 97.6 97.6 Pulse 72 76 Resp 18 B/P (MAP) 130/93 138/80 (99) Pulse Ox 96 O2 Delivery Room Air Room Air Intake and Output 04/23/17 04/23/17 04/24/17 15:00 23:00 07:00 Intake Total 100 ml 287.5 ml Output Total 0 ml Balance 100 ml 287.5 ml MACIE SINGLETARY III DO April 24, 2017 12:27
[2017-04-24] MEDS ORDERED: METO25TA4 PO (12:29)
[2017-04-24] MEDS ORDERED: FURO40TA4 PO (12:29)
[2017-04-24] MEDS ORDERED: POTA20TA82 PO (12:29)
[2017-04-27 12:04] LABS: VITAMIN-B12 551 pg/mL (247-911)
[2017-04-27 12:17] LABS: FOLATE > 24.00 ng/ml (3.2-20.0)
== END 2017-04-24 13:30 | disposition home or self-care (01) | DRG 305 ==
LOC: ER 13:54 → 2 SOUTH 14:44
PROVIDERS: ADMIT Internal Medicine; ATTEND Internal Medicine
DX: I16.0 Hypertensive urgency (principal); J45.20 Mild intermittent asthma, uncomplicated; M19.90 Unspecified osteoarthritis, unspecified site; D50.9 Iron deficiency anemia, unspecified; B00.9 Herpesviral infection, unspecified; I10 Essential (primary) hypertension; E11.9 Type 2 diabetes mellitus without complications; E87.6 Hypokalemia; E66.9 Obesity, unspecified; M54.5 Low back pain; R55 Syncope and collapse; R51 Headache; Z87.898 Personal history of other specified conditions; Z82.49 Family history of ischemic heart disease and other diseases of the circulatory system; Z87.440 Personal history of urinary (tract) infections; Z91.81 History of falling; Z68.31 Body mass index [BMI] 31.0-31.9, adult
CPT/HCPCS: 36415; 70450; 71020; 80048; 80053; 80061; 81001; 81025; 82553; 82607; 82728; 82746; 83540; 83550; 84443; 85007; 85027; 93005; 93306; 94250; 94760; 96361; 96365; 96375; G0481; J0360; J2405; J2765; J7030; J7050; 99285-25